=== PATIENT | female | born 1940 | race African-American/Black ===

== ENCOUNTER 2017-09-09 11:38 | Outpatient (CLI) | payer MEDICARE, BC ==
[2017-09-09 12:49] LABS: Anion Gap 12 mmol/L (10-20); BUN (Urea Nitrogen) 9 mg/dL (9.8-20.1); Calc. Creatinine Clearance 0 mL/min (70-130); Calcium 10.2 mg/dL (7.8-10.44); Carbon Dioxide 31 mmol/L (23-31); Chloride 105 mmol/L (98-107); Estimated GFR-MDRD 85
--- NOTE | 2017-09-09 17:15 | RAD ---
ABDOMEN ONE VIEW: History: Stones. Follow up. Comparison: 06-06-17 FINDINGS: Large amount of gas and stool are apparent throughout the colon, predominately obscuring the renal ou tlines. Metallic clips overlie the gallbladder fossa. Right ureteral stent is no longer visible. Calc ifications projecting over the left renal pelvis are similar in appearance and position to the previo us exam. IMPRESSION: 1. Interval removal of the right ureteral stent. 2. Left renal calculi appear stable. 3. Constipation. 4. Status post cholecystectomy. POS: [facility]
== END 2017-09-09 11:39 | disposition home or self-care (01) ==
LOC: RAD 11:38
PROVIDERS: ATTEND Urology
DX: N20.0 Calculus of kidney (principal); Q63.8 Other specified congenital malformations of kidney; Z46.6 Encounter for fitting and adjustment of urinary device; K59.00 Constipation, unspecified; Z90.49 Acquired absence of other specified parts of digestive tract
CPT/HCPCS: 36415; 74000; 80048

== ENCOUNTER 2018-01-15 15:10 | Outpatient (CLI) | payer MEDICARE, BC ==
--- NOTE | 2018-01-16 00:02 | HP ---
DATE OF SERVICE: 01/15/2018 HISTORY OF PRESENT ILLNESS: Ms. Teri Harris is a very pleasant 77-year-old who presents to the [facility] for evaluation of right and left lower extremity edema. The patient was referred to the Wound Center by Dr. Schuler on 2017. The patient states that she has had edema of her right and left lower extremities for approximately 4 years. The patient states that she has been previously prescribed compression stockings. PAST MEDICAL HISTORY: 1. Multiple sclerosis. 2. History of hypertension. 3. Nephrolithiasis 4. Osteoarthritis 5. Chronic lower back pain. PAST SURGICAL HISTORY: 1. Hysterectomy. 2. Appendectomy. 3. Cholecystectomy. MEDICATIONS: 1. Baclofen. 2. Carbamazepine. 3. Potassium chloride. 4. Lasix. 5. Avonex. 6. Advil. 7. Centrum Silver. ALLERGIES: No known diagnosed allergies. SOCIAL HISTORY: Negative for tobacco or ETOH use. FAMILY HISTORY: Negative for diabetes mellitus or coronary artery disease. PHYSICAL EXAMINATION: VITAL SIGNS: Temperature 97.9, pulse 70, respirations 20, blood pressure 177/ 81. GENERAL: A 77-year-old female, sitting on chair in examination room, in no acute distress. HEENT: Normocephalic, atraumatic. NECK: No nuchal rigidity. CHEST: Clear to auscultation. CARDIOVASCULAR: Regular rate and rhythm. ABDOMEN: Soft. EXTREMITIES: No open wounds are present over the right or left lower leg. No cellulitis of the right or left lower leg is present. No maceration of the skin of the right or left lower leg is present. Edema of the right and left lower legs is present on exam today. Circumferences of the right lower extremity at the ankle, calf, and knee are: 43 cm, 53 cm, and 70 cm. Circumferences of the left lower extremity at the ankle, calf, and knee are: 44 cm, 55 cm, and 70 cm. ASSESSMENT AND PLAN: 1. Lymphedema tarda. Arrangements will be made for the initiation of in-home lymphedema therapy. The patient will also be referred to Occupational Therapy for evaluation for manual lymphatic drainage, compression wraps, fitting with compression garments, instruction in exercises for edema management, and aquatic therapy. The patient is to return to the [facility]ound Center on 01/30/2018 where arrangements will be continued for the initiation of in-home lymphedema therapy. The patient understands and is in agreement with the preceding treatment plan. She declines referral for evaluation for venous ablation at the present time. 2. Multiple sclerosis. 3. History of hypertension. [facility]
== END 2018-01-15 15:11 | disposition home or self-care (01) ==
LOC: WCC 15:10
PROVIDERS: ATTEND Family Medicine
DX: I89.0 Lymphedema, not elsewhere classified (principal); G35 Multiple sclerosis; I10 Essential (primary) hypertension
CPT/HCPCS: 97139; G0463; 99203

== ENCOUNTER 2018-01-30 10:53 | Outpatient (CLI) | payer MEDICARE, BC ==
--- NOTE | 2018-01-30 13:20 | PRG ---
DATE OF SERVICE: 01/30/2018 HISTORY: Ms. Teri Harris is a very pleasant 77-year-old who presents to the [facility]ound Center for evaluat ion of right and left lower extremity. The patient was referred to the Wound Center by Dr. Patricia larios on 12/31/2017. The patient previously stated that she had had edema of her right and left lower ex tremities for approximately 4 years. The patient stated that she had previously been prescribed comp ression stockings. PHYSICAL EXAMINATION: VITAL SIGNS: Temperature 97.6, pulse 65, respirations 18, blood pressure 180/81. EXTREMITIES: No open wounds are present over the right or left lower leg. No cellulitis of the righ t or left lower leg is present. No maceration of the skin of the right or left lower leg is present. Edema of the right and left lower legs is present on exam today. Circumferences of the right lower extremity at the ankle, calf and knee are 40 cm, 50 cm, and 53 cm. Circumferences of the left lower extremity at the ankle, calf and knee are 37 cm, 53 cm and 55 cm. ASSESSMENT AND PLAN: 1. Lymphedema tarda. Arrangements will be continued for the initiation of in-home lymphedema therap y. The patient previously declined referral for evaluation for venous ablation at the present time. 2. Multiple sclerosis. 3. History of hypertension.
== END 2018-01-30 10:54 | disposition home or self-care (01) ==
LOC: WCC 10:53
PROVIDERS: ATTEND Family Medicine
DX: I89.0 Lymphedema, not elsewhere classified (principal); G35 Multiple sclerosis; I10 Essential (primary) hypertension; R60.0 Localized edema
CPT/HCPCS: 97139; G0463; 99212

== ENCOUNTER 2018-11-05 23:13 | Inpatient (IN) | payer MEDICARE, BC ==
[2018-11-06 00:28] LABS: #Basophils 0.1 thou/uL (0.0-0.2); #Eosinphils 0.1 thou/uL (0.0-0.7); #Lymphocytes 1.7 thou/uL (1.20-3.40); #Monocytes 0.6 thou/uL (0.11-0.59); #Neutrophils 3.9 thou/uL (1.40-6.50); %Basophils 0.9 % (0.0-1.0); %Eosinophils 1.8 % (0.0-10.0); %Lymphocytes 26.8 % (21.0-51.0); %Neutrophils 61.5 % (42.0-75.0); Hemoglobin 15.2 g/dL (12.0-16.0); Mean Corpuscular HGB CONC 32.8 g/dL (32.0-36.0); Mean Corpuscular Hemoglobin 30.1 pg (27.0-31.0); Mean Platelet Volume 7.3 fL (7.4-10.4); Platelet Count 236 thou/uL (130-400); RBC Distribution Width 11.6 % (11.5-14.5); Red Blood Cell (RBC) Count 5.03 mill/uL (4.20-5.40); White Blood Cell (WBC) Count 6.3 thou/uL (4.8-10.8)
[2018-11-06 00:35] LABS: ALT (SGPT) 22 U/L (8-55); AST (SGOT) 30 U/L (5-34); Albumin 4.3 g/dL (3.4-4.8); Alkaline Phosphatase 94 U/L (40-150); Anion Gap 12 mmol/L (10-20); BUN (Urea Nitrogen) 14 mg/dL (9.8-20.1); Bilirubin, Total 0.5 mg/dL (0.2-1.2); CK (CPK) 305 U/L (29-168); Calc. Creatinine Clearance 0 mL/min (70-130); Calcium 9.9 mg/dL (7.8-10.44); Carbon Dioxide 24 mmol/L (23-31); Chloride 92 mmol/L (98-107); Estimated GFR-MDRD 69; Globulin 3.9 g/dL (2.4-3.5); Glucose 122 mg/dL (83-110); Protein, Total 8.2 g/dL (6.0-8.3); Sodium 125 mmol/L (136-145)
[2018-11-06 01:05] LABS: Bilirubin Negative (Negative); Blood, Urine Small (Negative); Clarity CLOUDY (Clear); Glucose, Urine (Dipstick) Negative (Negative); Leukocyte Moderate (Negative); Nitrite Positive (Negative); Protein, Urine (Dipstick) Trace mg/dL (Neg-Trace)
[2018-11-06 01:08] LABS: Bacteria/HPF None Seen HPF (None Seen); Hyaline Casts/LPF 4-6 HYALINE CAST LPF (0-3 Hyaline); Pathc Cast-AUWi Flag 0.29 (0-2.49)
[2018-11-06 01:17] LABS: Yeast-AUWi Flag 42.4 (0-25.0)
[2018-11-06 01:19] LABS: Renal Epithelial None Seen HPF (0-3); Transitional Epithelial NONE SEEN HPF (0-3); Yeast-All Forms None Seen HPF (None Seen)
[2018-11-06] MEDS ORDERED: cefTRIAXone\\ROCEPHIN 1 GM VIAL ONE (02:48)
[2018-11-06] MEDS ORDERED: Magnesium 2 GM/50 ML BAG (IN WATER) ONE (02:48)
[2018-11-06] MEDS ORDERED: Potassium Chloride 20 MEQ TAB ONE (03:02)
[2018-11-06 04:14] LABS: Troponin I 0.026 ng/mL (< 0.028)
--- NOTE | 2018-11-06 07:40 | RAD ---
RADIOGRAPH CHEST 1 VIEW: HISTORY: 77-year-old female with generalized weakness. FINDINGS: The thoracic aorta is tortuous and ectatic. There is no evidence of air space density, pneumothorax, or pulmonary edema. The lateral costophrenic angles are sharp. IMPRESSION: 1. No acute pulmonary findings. 2. Ectasia of thoracic aorta. cecil [] POS: [facility]
[2018-11-06] MEDS ORDERED: Acetaminophen 325 MG TAB PO PRN (10:49)
[2018-11-06] MEDS ORDERED: Nitroglycerin 0.4 MG TAB (25 Tab Bottle) PO PRN (10:49)
[2018-11-06] MEDS ORDERED: Aspirin 325 MG TAB PO SCH (11:00)
[2018-11-06] MEDS ORDERED: NS 0.9% w/ 40 MEQ KCL 1,000 ML IV SCH (11:00)
--- NOTE | 2018-11-06 15:04 | HP ---
PRIMARY CARE PROVIDER: Norman Schuler MD CHIEF COMPLAINT: Weakness. HISTORY OF PRESENT ILLNESS: Ms. Harris is a pleasant 77-year-old lady, who was seen at [facility] on November 06, 2018. She has a history of lymphedema tarda. She reports that her lower extremities are usually swollen. She reports that she has had generalized weakness over the last day or so, with lower extremity weakness as well. She uses a mechanical chair at home. She can take one or two steps with a walker; however, when she tried to stand up yesterday, she found that she was unable to stand because of lower extremity weakness. She denies any chest pain, shortness of breath, fevers, or chills. She denies any nausea or vomiting. REVIEW OF SYSTEMS: All other systems reviewed and found to be negative. PAST MEDICAL HISTORY: Lymphedema tarda, multiple sclerosis, hypertension. PAST SURGICAL HISTORY: Appendectomy, tubal ligation, kidney stone removal, hysterectomy. SOCIAL HISTORY: The patient denies tobacco use, alcohol use, or recreational drug use. FAMILY HISTORY: The patient denies any family history of premature coronary artery disease. CODE STATUS: I discussed her code status. She is full code. Surrogate decision maker is her oldest daughter, Eva Rivera. ALLERGIES: NO KNOWN DRUG ALLERGIES. CURRENT MEDICATIONS: 1. Carbamazepine 200 mg 2 times a day. 2. Potassium chloride 40 mEq daily. 3. Furosemide 40 mg 2 times a day. 4. Baclofen 20 mg 2 times a day. 5. Avonex 30 mcg intramuscularly every week. 6. Amlodipine 10 mg daily. PHYSICAL EXAMINATION: GENERAL: On examination, Ms. Harris is awake and alert, not in acute distress. She is obese. VITAL SIGNS: Blood pressure is 154/96, pulse 82, respiratory rate 16, and oxygen saturation 99% on room air. She is afebrile. EYES: No scleral icterus, no conjunctival pallor. ENT: Dry mucosal membranes. No oropharyngeal erythema or exudates. NECK: Supple, nontender, trachea is midline. RESPIRATORY: Accessory muscles of breathing are not active. Chest wall movements are symmetric bilaterally. Lungs are clear to auscultation without wheeze, rhonchi, or crepitations. CARDIOVASCULAR: S1 and S2 are heard, regular. Peripheral pulses palpable. No carotid bruit. No pericardial rub. ABDOMEN: Soft, nontender, bowel sounds are heard. NEUROLOGIC: Cranial nerves 2 through 12 intact, deep tendon reflexes 2+. MUSCULOSKELETAL: Bilateral lower extremity lymphedema. Power is 5/5 in all four extremities. SKIN: Bilateral lower extremity lymphedema. LYMPHATIC: No cervical lymphadenopathy. PSYCHIATRIC: Normal mood, normal affect, the patient is oriented to person, place, and time. LABORATORY DATA AND DIAGNOSTIC DATA: Ms. Harris's labs and investigations were reviewed. I reviewed her electrocardiogram, which shows normal sinus rhythm, no ST changes to suggest an acute coronary syndrome. I also reviewed her chest x-ray, which does not show any pulmonary infiltrates. There is no pulmonary edema. She has an unremarkable CBC, decreased sodium of 125, decreased potassium of 3.0, normal creatinine, elevated CK of 305, unremarkable liver profile and elevated troponin I of 0.030. BNP is normal at 18.7. Magnesium is normal. Urinalysis is positive for nitrite and leukocyte esterase. ASSESSMENT AND PLAN: Ms. Harris is a pleasant 77-year-old lady, who was seen at [facility] on November 06, 2018. Her problem list includes: 1. Weakness: Ms. Harris is presenting with generalized weakness, worse in the lower extremities. Etiology is not clear at this time. She appears to have a urinary tract infection. She also has troponins which are in the indeterminate range. At this time, she denies any chest pain. She will be admitted to the hospital for further management. 2. Urinary tract infection: She has been started on ceftriaxone, which I will continue. We will await urine cultures. 3. Elevated troponin: We will check stress test to rule out cardiac etiology. 4. Hyponatremia: The patient is clinically dehydrated. We will provide intravenous hydration and recheck. 5. Hypokalemia: Replace potassium. 6. Hypertension: We will monitor vital signs and titrate antihypertensives as needed. Many thanks for allowing me to participate in your patient's care. Please feel free to contact me with any questions or concerns. LEVEL OF RISK: High. LEVEL OF COMPLEXITY: High. Job ID: [id number]
[2018-11-06 17:13] VITALS: BMI 44.4
[2018-11-06] MEDS ORDERED: Losartan 25 MG TAB PO SCH (19:00)
[2018-11-06] MEDS ORDERED: Furosemide 40 MG TAB PO SCH (19:00)
[2018-11-06] MEDS: Baclofen 10 MG TAB PO SCH (20:47)
[2018-11-06] MEDS: hydrALAZINE 20 MG/ML VIAL SLOW IVP PRN (20:48)
[2018-11-06] MEDS: Potassium Chloride 20 MEQ TAB PO SCH (20:48)
[2018-11-07] MEDS: Potassium Chloride 20 MEQ TAB PO SCH ×2 (00:12→12:57)
[2018-11-07 05:43] LABS: Anion Gap 16 mmol/L (10-20); BUN (Urea Nitrogen) 8 mg/dL (9.8-20.1); Calc. Creatinine Clearance 124 mL/min (70-130); Calcium 9.5 mg/dL (7.8-10.44); Carbon Dioxide 22 mmol/L (23-31); Chloride 107 mmol/L (98-107); Estimated GFR-MDRD 90; Glucose 105 mg/dL (83-110); Potassium 3.8 mmol/L (3.5-5.1); Sodium 141 mmol/L (136-145)
[2018-11-07] MEDS: cefTRIAXone\\ROCEPHIN 1 GM in Sodium Chloride 0.9% 100 ML IVPB SCH (05:50)
[2018-11-07 05:54] LABS: Band 2 % (5-11); Hemoglobin 14.4 g/dL (12.0-16.0); Lymphocytes 38 % (21-51); MDiff Complete? YES; Mean Corpuscular HGB CONC 32.9 g/dL (32.0-36.0); Mean Corpuscular Hemoglobin 30.4 pg (27.0-31.0); Mean Corpuscular Volume 92.5 fL (78.0-98.0); Monocytes 2 % (0-10); Neutrophil 58 % (42-75); Platelet Count 200 thou/uL (130-400); Platelet Morphology Comment Appears Adequate; RBC Distribution Width 11.7 % (11.5-14.5); RBC Morphology Normal; Red Blood Cell (RBC) Count 4.74 mill/uL (4.20-5.40); White Blood Cell (WBC) Count 6.3 thou/uL (4.8-10.8)
[2018-11-07] MEDS: Baclofen 10 MG TAB PO SCH ×2 (10:42→20:22)
[2018-11-07] MEDS: Enoxaparin Sodium 40 MG/0.4 ML SYRINGE SC SCH (12:56)
[2018-11-07] MEDS: Furosemide 40 MG TAB PO SCH (12:57)
[2018-11-07] MEDS: Aspirin 325 MG TAB PO SCH (12:57)
--- NOTE | 2018-11-07 13:59 | PDOC.PN ---
- Subjective Encounter Start Date: 11/07/18 Encounter Start Time: 08:00 Pt seen for followup re: UTI. Feels better. No chest pain. - Objective Resuscitation Status - Order Detail: 11/06/18 10:49 Resuscitation Status Routine Resuscitation Status: FULL: Full Resuscitation Discussed with: patient MANISH Reviewed: Yes Vital Signs & Weight: Vital Signs (12 hours) Temp Pulse Resp BP BP Pulse Ox 11/07/18 12:53 98.3 F 94 16 136/66 97 11/07/18 07:28 98.5 F 83 16 142/76 H 142/76 H 96 11/07/18 04:00 98.8 F 81 19 161/70 H 98 Weight Weight 269 lb 4.8 oz I&O: 11/06/18 11/07/18 11/08/18 06:59 06:59 06:59 Intake Total 240 Output Total 1200 Balance -960 Result Diagrams: 11/07/18 04:53 11/07/18 04:53 EKG Reviewed by me: Yes (Tele: NSR) Phys Exam - Physical Examination Morbid obesity HEENT: moist MMs, sclera anicteric, oral pharynx no lesions, 2+ tonsils Neck: no nodes, no JVD, supple, full ROM Respiratory: clear to auscultation bilateral Cardiovascular: RRR, no rub S1, S2 Gastrointestinal: soft, non-tender, no distention, positive bowel sounds Neurological: moves all 4 limbs Psychiatric: normal affect, A&O x 3 Dx/Plan (1) UTI (urinary tract infection) Status: Acute Comment: continue ceftriaxone, follow culture (2) Weakness Code(s): R53.1 - WEAKNESS Status: Acute Comment: PT eval if stress test negative (3) Elevated troponin Code(s): R74.8 - ABNORMAL LEVELS OF OTHER SERUM ENZYMES Status: Acute Comment: await stress test result (4) HTN (hypertension) Code(s): I10 - ESSENTIAL (PRIMARY) HYPERTENSION Status: Chronic Comment: controlled (5) Hyponatremia Code(s): E87.1 - HYPO-OSMOLALITY AND HYPONATREMIA Status: Resolved - Plan * . Review of Systems - Review of Systems Constitutional: weakness. negative: fever, chills, sweats, malaise Respiratory: negative: Cough, Shortness of Breath, SOB with Excertion, Pleuritic Pain, Wheezing Cardiovascular: negative: chest pain, palpitations, orthopnea, paroxysmal nocturnal dyspnea, edema, light headedness Gastrointestinal: negative: Nausea, Vomiting, Abdominal Pain, Diarrhea, Constipation, Melena, Hematochezia Genitourinary: negative: Dysuria, Frequency, Incontinence, Hematuria, Retention Skin: negative: Rash, Lesions, Ramiro, Bruising - Medications/Allergies Allergies/Adverse Reactions: Allergies Allergy/AdvReac Type Severity Reaction Status Date / Time No Known Drug Allergies Allergy Verified 05/27/17 13:53 Medications: Current Medications Acetaminophen (Tylenol) 650 mg PO Q4H PRN PRN Reason: Headache/Fever/Mild Pain (1-3) Aspirin (Aspirin) 325 mg PO DAILY [facility] Last Admin: 11/07/18 12:57 Dose: 325 mg Baclofen (Lioresal) 20 mg PO BID [facility] Last Admin: 11/07/18 10:42 Dose: Not Given Carbamazepine (Tegretol Xr) 200 mg PO BID [facility] Last Admin: 11/07/18 10:43 Dose: Not Given Enoxaparin Sodium (Lovenox) 40 mg SC 0900 [facility] Last Admin: 11/07/18 12:56 Dose: 40 mg Furosemide (Lasix) 40 mg PO QAM [facility] Last Admin: 11/07/18 12:57 Dose: 40 mg Hydralazine HCl (Apresoline) 10 mg SLOW IVP Q6H PRN PRN Reason: SBP Greater Than 170 Last Admin: 11/06/18 20:48 Dose: 10 mg Ceftriaxone Sodium 1 gm/ (Sodium Chloride) 100 mls @ 200 mls/hr IVPB 0400 [facility] Last Admin: 11/07/18 05:50 Dose: 100 mls Nitroglycerin (Nitrostat) 0.4 mg PO Q5MIN PRN PRN Reason: Chest Pain Potassium Chloride (K-Dur) 20 meq PO QAM [facility] Last Admin: 11/07/18 12:57 Dose: 20 meq Sodium Chloride (Flush - Normal Saline) 10 ml IVF Q12HR [facility] Last Admin: 11/07/18 12:56 Dose: 10 ml Sodium Chloride (Flush - Normal Saline) 10 ml IVF PRN PRN PRN Reason: Saline Flush
--- NOTE | 2018-11-07 14:50 | NM ---
MYOCARDIAL PERFUSION STRESS ONLY EXAM: HISTORY: Chest pain. Examination was performed using 28 mCi 99m Technetium sestamibi on the This shows a fairly normal dis tribution of the radiopharmaceutical. No signs of any ischemia change. WALL MOTION: There is symmetric contractility to the ventricle. LEFT VENTRICULAR EJECTION FRACTION: The calculated left ventricular ejection fraction was 78%. IMPRESSION: Unremarkable stress myocardial perfusion scan. POS: [facility]
[2018-11-08] MEDS: cefTRIAXone\\ROCEPHIN 1 GM in Sodium Chloride 0.9% 100 ML IVPB SCH (04:11)
[2018-11-08] MEDS: Furosemide 40 MG TAB PO SCH (08:17)
[2018-11-08] MEDS: Baclofen 10 MG TAB PO SCH ×2 (08:17→21:25)
[2018-11-08] MEDS: Enoxaparin Sodium 40 MG/0.4 ML SYRINGE SC SCH (08:17)
[2018-11-08] MEDS: Potassium Chloride 20 MEQ TAB PO SCH (08:17)
[2018-11-08] MEDS: Aspirin 325 MG TAB PO SCH (08:17)
--- NOTE | 2018-11-08 15:07 | PDOC.PN ---
- Subjective Encounter Start Date: 11/08/18 Encounter Start Time: 14:30 Subjective: patient examined today, reports bilateral knee pain -: Reports right is worse than left -: Reports having a MS flare, Dr. Milton usually manages Otherwise, no complaints today, Denies chest pain, nausea, SOB). - Objective Resuscitation Status - Order Detail: 11/06/18 10:49 Resuscitation Status Routine Resuscitation Status: FULL: Full Resuscitation Discussed with: patient Vital Signs & Weight: Vital Signs (12 hours) Temp Pulse Resp BP Pulse Ox 11/08/18 11:29 98.2 F 91 16 163/76 H 97 11/08/18 08:12 98.4 F 89 16 162/81 H 98 11/08/18 03:38 98.3 F 83 14 174/81 H 96 Weight Weight 122.101 kg I&O: 11/07/18 11/08/18 11/09/18 06:59 06:59 06:59 Intake Total 240 760 Output Total 1200 600 Balance -960 160 Result Diagrams: 11/07/18 04:53 11/07/18 04:53 Phys Exam - Physical Examination Constitutional: NAD HEENT: PERRLA, moist MMs Neck: no nodes, no JVD Respiratory: no wheezing, clear to auscultation bilateral Cardiovascular: RRR, no significant murmur Gastrointestinal: soft, non-tender Musculoskeletal: pulses present, edema present +1 edema bilaterally, bilateral knee pain Neurological: non-focal, moves all 4 limbs Lymphatic: no nodes Psychiatric: normal affect, A&O x 3 Skin: no rash, normal turgor Dx/Plan (1) Elevated troponin Code(s): R74.8 - ABNORMAL LEVELS OF OTHER SERUM ENZYMES Status: Acute Comment: await stress test result (2) UTI (urinary tract infection) Status: Acute Comment: continue ceftriaxone, follow culture (3) Weakness Code(s): R53.1 - WEAKNESS Status: Acute Comment: PT eval if stress test negative (4) HTN (hypertension) Code(s): I10 - ESSENTIAL (PRIMARY) HYPERTENSION Status: Chronic Comment: controlled (5) Edema of both legs Code(s): R60.0 - LOCALIZED EDEMA Status: Acute (6) Hip pain, acute Code(s): M25.559 - PAIN IN UNSPECIFIED HIP Status: Chronic (7) Knee pain, bilateral Code(s): M25.561 - PAIN IN RIGHT KNEE; M25.562 - PAIN IN LEFT KNEE Status: Chronic Qualifiers: Chronicity: chronic Qualified Code(s): M25.561 - Pain in right knee Comment: likely due to osteoarthritis vs acute gout pain (8) Multiple sclerosis Code(s): G35 - MULTIPLE SCLEROSIS Status: Chronic Comment: need to rule out exacerbation (9) Physical deconditioning Code(s): R53.81 - OTHER MALAISE Status: Chronic - Plan cont current plan of care CM talked to pt and family today about possible SNF placement -: Consult Dr. Milton re: MS flare -: Switch patient over to PO ABX * .
--- NOTE | 2018-11-08 20:32 | PDOC.EVN ---
Event Note - Event Note Event Note: Chart reviewed. Pt seen Pt says she feels well, no complaints. VSS S1, S2, reg Lungs CTA A/P 1. UTI: continue antibiotics. Discussed plan of care with Louisa.
--- NOTE | 2018-11-08 23:46 | EKG ---
Test Reason : Blood Pressure : / mmHG Vent. Rate : 089 BPM Atrial Rate : 089 BPM P-R Int : 156 ms QRS Dur : 080 ms QT Int : 374 ms P-R-T Axes : 044 -04 005 degrees QTc Int : 455 ms Normal sinus rhythm Minimal voltage criteria for LVH, may be normal variant Inferior infarct , age undetermined Cannot rule out Anterior infarct , age undetermined Abnormal ECG Confirmed by JOSHUA LOFTON DO ([id number]), scientific publications editor KIMBERLY MORELAND ([id number]) on 11/08/2018 11:45:42 PM Referred By: Confirmed By:JOSHUA LOFTON DO
[2018-11-09] MEDS: Enoxaparin Sodium 40 MG/0.4 ML SYRINGE SC SCH (08:49)
[2018-11-09] MEDS: Aspirin 325 MG TAB PO SCH (08:49)
[2018-11-09] MEDS: Baclofen 10 MG TAB PO SCH ×2 (08:49→21:35)
[2018-11-09] MEDS: Furosemide 40 MG TAB PO SCH (08:49)
[2018-11-09] MEDS: Potassium Chloride 20 MEQ TAB PO SCH (08:50)
[2018-11-09] MEDS: Cefdinir 300 MG CAP PO SCH ×2 (08:50→21:35)
[2018-11-09] MEDS ORDERED: methylPREDNISolone Sod Succ 1 GM in Sodium Chloride 0.9% 100 ML IVPB SCH (12:00)
[2018-11-09] MEDS: methylPREDNISolone Sod Succ 1 GM in Sodium Chloride 0.9% 250 ML 250 ML IVPB SCH (12:25)
--- NOTE | 2018-11-09 20:35 | PDOC.PN ---
- Subjective Encounter Start Date: 11/09/18 Encounter Start Time: 20:25 Subjective: f/u for severe weakness of bilat LE's and suspected MS flare. Received -: Solumedrol IV with plans for 3 doses. Feels ok otherwise. - Objective Resuscitation Status - Order Detail: 11/06/18 10:49 Resuscitation Status Routine Resuscitation Status: FULL: Full Resuscitation Discussed with: patient MANISH Reviewed: Yes Vital Signs & Weight: Vital Signs (12 hours) Temp Pulse Resp BP Pulse Ox 11/09/18 19:30 97.8 F 88 14 173/87 H 94 L 11/09/18 15:02 98.6 F 81 16 168/88 H 95 11/09/18 12:22 88 16 159/75 H 99 Weight Weight 265 lb 8 oz I&O: 11/08/18 11/09/18 11/10/18 06:59 06:59 06:59 Intake Total 760 1720 1520 Output Total 600 3350 1875 Balance 160 -1630 -355 Result Diagrams: 11/07/18 04:53 11/07/18 04:53 Additional Labs: Microbiology 11/08/18 11:05 Urine clean catch Urine Culture - Preliminary Non-Hemolytic Streptococcus Laboratory Tests 11/06/18 11/06/18 00:16 00:16 Magnesium 2.4 B-Natriuretic Peptide 18.7 Radiology Reviewed by me: Yes ([employer] - neg for ischemia, EF 78%) EKG Reviewed by me: Yes (Tele - SR) Phys Exam - Physical Examination Constitutional: NAD HEENT: PERRLA, sclera anicteric, oral pharynx no lesions Neck: no nodes, no JVD, supple, full ROM Respiratory: no wheezing, no rales, no rhonchi, clear to auscultation bilateral S1, S2 Cardiovascular: RRR, no significant murmur, no rub, gallop Gastrointestinal: soft, non-tender, no distention, positive bowel sounds mild peripheral edema Musculoskeletal: pulses present moves UE's, LE's minimal movement laterally Neurological: normal sensation Psychiatric: A&O x 3 Skin: normal turgor, cap refill <2 seconds Dx/Plan (1) Multiple sclerosis exacerbation Code(s): G35 - MULTIPLE SCLEROSIS Status: Acute Comment: Suspected, continue Solumedrol 1gm IV x 3 doses (2) UTI (urinary tract infection) Status: Acute Comment: Continue Omnicef (3) Weakness Code(s): R53.1 - WEAKNESS Status: Acute Comment: PT for mobilization/ ambulation, SNF options (4) HTN (hypertension) Code(s): I10 - ESSENTIAL (PRIMARY) HYPERTENSION Status: Chronic Qualifiers: Hypertension type: essential hypertension Qualified Code(s): I10 - Essential (primary) hypertension Comment: continue Lasix, monitor clinical response, titrate for optimization - Plan plan discussed w/ family, continue antibiotics, 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
[2018-11-10] MEDS: Enoxaparin Sodium 40 MG/0.4 ML SYRINGE SC SCH (10:04)
[2018-11-10] MEDS: Aspirin Chewable 81 MG TAB PO SCH (10:04)
[2018-11-10] MEDS: Cefdinir 300 MG CAP PO SCH ×2 (10:05→22:04)
[2018-11-10] MEDS: Potassium Chloride 20 MEQ TAB PO SCH (10:05)
[2018-11-10] MEDS: Baclofen 10 MG TAB PO SCH ×2 (10:05→22:05)
[2018-11-10] MEDS: Furosemide 40 MG TAB PO SCH (10:05)
[2018-11-10] MEDS: methylPREDNISolone Sod Succ 1 GM in Sodium Chloride 0.9% 250 ML 250 ML IVPB SCH (12:08)
--- NOTE | 2018-11-10 16:07 | PDOC.PN ---
- Subjective Encounter Start Date: 11/10/18 Encounter Start Time: 16:00 Subjective: f/u for LE weakness suspected with MS flare on Solumedrol IV x 3d. -: Feels better, stood at bedside and more ROM of LE's. - Objective Resuscitation Status - Order Detail: 11/06/18 10:49 Resuscitation Status Routine Resuscitation Status: FULL: Full Resuscitation Discussed with: patient MANISH Reviewed: Yes Vital Signs & Weight: Vital Signs (12 hours) Temp Pulse Pulse Pulse Resp BP BP 11/10/18 13:30 92 147/78 H 11/10/18 12:32 98.4 F 89 18 11/10/18 09:44 99 166/80 H 11/10/18 08:10 98.5 F 97 18 BP Pulse Ox 11/10/18 13:30 11/10/18 12:32 159/68 H 96 11/10/18 09:44 11/10/18 08:10 122/60 95 Weight Weight 269 lb 11.2 oz I&O: 11/09/18 11/10/18 11/11/18 06:59 06:59 06:59 Intake Total 1720 1820 Output Total 3350 2975 Balance -1630 -1155 Result Diagrams: 11/07/18 04:53 11/07/18 04:53 Additional Labs: Microbiology 11/08/18 11:05 Urine clean catch Urine Culture - Preliminary Non-Hemolytic Streptococcus Laboratory Tests 11/06/18 11/06/18 00:16 00:16 Magnesium 2.4 B-Natriuretic Peptide 18.7 EKG Reviewed by me: Yes (Tele - SR) Phys Exam - Physical Examination Constitutional: NAD HEENT: PERRLA, sclera anicteric, oral pharynx no lesions Neck: no nodes, no JVD, supple, full ROM Respiratory: no wheezing, no rales, no rhonchi, clear to auscultation bilateral S1, S2 Cardiovascular: RRR, no significant murmur, no rub, gallop Gastrointestinal: soft, non-tender, no distention, positive bowel sounds Musculoskeletal: pulses present, edema present Neurological: normal sensation, moves all 4 limbs Psychiatric: A&O x 3 Skin: normal turgor, cap refill <2 seconds Dx/Plan (1) Multiple sclerosis exacerbation Code(s): G35 - MULTIPLE SCLEROSIS Status: Acute Comment: Suspected, continue Solumedrol 1gm IV x 3 doses (2) UTI (urinary tract infection) Status: Acute Comment: Continue Omnicef (3) Weakness Code(s): R53.1 - WEAKNESS Status: Acute Comment: PT for mobilization/ ambulation, likely home in 24h with HH/PT (4) HTN (hypertension) Code(s): I10 - ESSENTIAL (PRIMARY) HYPERTENSION Status: Chronic Qualifiers: Hypertension type: essential hypertension Qualified Code(s): I10 - Essential (primary) hypertension Comment: continue Lasix, monitor clinical response, titrate for optimization - Plan plan discussed w/ family, 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
[2018-11-11] MEDS: Baclofen 10 MG TAB PO SCH ×2 (08:39→20:37)
[2018-11-11] MEDS: Enoxaparin Sodium 40 MG/0.4 ML SYRINGE SC SCH (08:40)
[2018-11-11] MEDS: Potassium Chloride 20 MEQ TAB PO SCH (08:40)
[2018-11-11] MEDS: Aspirin Chewable 81 MG TAB PO SCH (08:40)
[2018-11-11] MEDS: Cefdinir 300 MG CAP PO SCH ×2 (08:40→20:37)
[2018-11-11] MEDS: Furosemide 40 MG TAB PO SCH (08:40)
[2018-11-11] MEDS: hydrALAZINE 20 MG/ML VIAL SLOW IVP PRN ×2 (09:27→20:39)
[2018-11-11] MEDS: methylPREDNISolone Sod Succ 1 GM in Sodium Chloride 0.9% 250 ML 250 ML IVPB SCH (11:47)
--- NOTE | 2018-11-11 15:05 | PDOC.PN ---
- Subjective Encounter Start Date: 11/11/18 Encounter Start Time: 15:00 Subjective: f/u for LE weakness and suspected MS flare. Received Solumedrol -: IV x 3 days. Feels much better and moving LE's easier. - Objective Resuscitation Status - Order Detail: 11/06/18 10:49 Resuscitation Status Routine Resuscitation Status: FULL: Full Resuscitation Discussed with: patient MANISH Reviewed: Yes Vital Signs & Weight: Vital Signs (12 hours) Temp Pulse Resp BP BP Pulse Ox 11/11/18 11:32 99.1 F 93 17 141/67 H 95 11/11/18 10:00 92 160/76 H 11/11/18 09:27 71 195/71 H 11/11/18 08:20 99.3 F 72 16 173/79 H 100 11/11/18 03:37 98.0 F 91 14 142/67 H 97 Weight Weight 271 lb I&O: 11/10/18 11/11/18 11/12/18 06:59 06:59 06:59 Intake Total 1820 2050 Output Total 2975 2775 Balance -1155 -725 Result Diagrams: 11/07/18 04:53 11/07/18 04:53 Additional Labs: Microbiology 11/08/18 11:05 Urine clean catch Urine Culture - Preliminary Non-Hemolytic Streptococcus Laboratory Tests 11/06/18 11/06/18 00:16 00:16 Magnesium 2.4 B-Natriuretic Peptide 18.7 EKG Reviewed by me: Yes (Tele - SR) Phys Exam - Physical Examination Constitutional: NAD HEENT: PERRLA, sclera anicteric, oral pharynx no lesions Neck: no nodes, no JVD, supple, full ROM Respiratory: no wheezing, no rales, no rhonchi, clear to auscultation bilateral S1, S2 Cardiovascular: RRR, no significant murmur, no rub, gallop Gastrointestinal: soft, non-tender, no distention, positive bowel sounds mild peripheral LE edema Musculoskeletal: pulses present Neurological: normal sensation, moves all 4 limbs Psychiatric: A&O x 3 Skin: normal turgor, cap refill <2 seconds Dx/Plan (1) Multiple sclerosis exacerbation Code(s): G35 - MULTIPLE SCLEROSIS Status: Acute Comment: Suspected, completed Solumedrol x 3 doses, stable (2) UTI (urinary tract infection) Status: Acute Comment: Continue Omnicef (3) Weakness Code(s): R53.1 - WEAKNESS Status: Acute Comment: PT for mobilization/ ambulation, plan for Rehab transfer (4) HTN (hypertension) Code(s): I10 - ESSENTIAL (PRIMARY) HYPERTENSION Status: Chronic Qualifiers: Hypertension type: essential hypertension Qualified Code(s): I10 - Essential (primary) hypertension Comment: continue Lasix, monitor clinical response, titrate for optimization - Plan plan discussed w/ family, continue antibiotics, PT/OT, director social welfare, out of bed/ambulate Stable currently -: PT for mobilization -: Continue Lasix 40mg daily -: Continue Omnicef -: Likely d/c to inpt rehab * .
[2018-11-12] MEDS: Enoxaparin Sodium 40 MG/0.4 ML SYRINGE SC SCH (08:44)
[2018-11-12] MEDS: Potassium Chloride 20 MEQ TAB PO SCH (08:44)
[2018-11-12] MEDS: Aspirin Chewable 81 MG TAB PO SCH (08:44)
[2018-11-12] MEDS: Furosemide 40 MG TAB PO SCH (08:45)
[2018-11-12] MEDS: Baclofen 10 MG TAB PO SCH ×2 (08:45→20:35)
[2018-11-12] MEDS: Cefdinir 300 MG CAP PO SCH ×2 (08:45→20:35)
--- NOTE | 2018-11-12 20:03 | PDOC.PN ---
- Subjective Encounter Start Date: 11/12/18 Encounter Start Time: 19:25 Subjective: f/u for LE weakness and suspected MS flare s/p high-dose Solumedrol -: x 3 days. Feels ok overall. c/o needing to have a BM. - Objective Resuscitation Status - Order Detail: 11/06/18 10:49 Resuscitation Status Routine Resuscitation Status: FULL: Full Resuscitation Discussed with: patient MAR Reviewed: Yes Vital Signs & Weight: Vital Signs (12 hours) Temp Pulse Resp BP Pulse Ox 11/12/18 15:39 80 16 173/90 H 94 L 11/12/18 11:45 98.9 F 89 14 135/65 97 Weight Weight 273 lb I&O: 11/11/18 11/12/18 11/13/18 06:59 06:59 06:59 Intake Total 2049 1740 1250 Output Total 2775 2049 1800 Balance -725 -310 -550 Result Diagrams: 11/07/18 04:53 11/07/18 04:53 EKG Reviewed by me: Yes (Tele - SR) Phys Exam - Physical Examination Constitutional: NAD HEENT: PERRLA, sclera anicteric, oral pharynx no lesions Neck: no nodes, no JVD, supple, full ROM Respiratory: no wheezing, no rales, no rhonchi, clear to auscultation bilateral S1, S2 Cardiovascular: RRR, no significant murmur, no rub, gallop Gastrointestinal: soft, non-tender, no distention, positive bowel sounds Musculoskeletal: pulses present, edema present Neurological: normal sensation, moves all 4 limbs Skin: normal turgor, cap refill <2 seconds Dx/Plan (1) Multiple sclerosis exacerbation Code(s): G35 - MULTIPLE SCLEROSIS Status: Acute Comment: Suspected, completed Solumedrol x 3 doses, stable (2) UTI (urinary tract infection) Status: Acute Comment: Continue Omnicef another 24h then d/c (3) Weakness Code(s): R53.1 - WEAKNESS Status: Acute Comment: PT for mobilization/ ambulation, plan for Rehab transfer (4) HTN (hypertension) Code(s): I10 - ESSENTIAL (PRIMARY) HYPERTENSION Status: Chronic Qualifiers: Hypertension type: essential hypertension Qualified Code(s): I10 - Essential (primary) hypertension Comment: continue Lasix, monitor clinical response, titrate for optimization - Plan continue antibiotics, PT/OT, clinical social work therapist Stable overall -: Sennokot-S BID -: PT for mobilization -: Await Rehab transfer -: Continue Tegretol/Baclofen * .
[2018-11-12] MEDS: Senokot S 8.6-50 MG TAB PO SCH (20:35)
[2018-11-13] MEDS: Aspirin Chewable 81 MG TAB PO SCH (08:16)
[2018-11-13] MEDS: Senokot S 8.6-50 MG TAB PO SCH ×2 (08:16→21:11)
[2018-11-13] MEDS: Baclofen 10 MG TAB PO SCH ×2 (08:16→21:10)
[2018-11-13] MEDS: Cefdinir 300 MG CAP PO SCH ×2 (08:17→21:11)
[2018-11-13] MEDS: Furosemide 40 MG TAB PO SCH (08:17)
[2018-11-13] MEDS: Potassium Chloride 20 MEQ TAB PO SCH (08:17)
[2018-11-13] MEDS: Enoxaparin Sodium 40 MG/0.4 ML SYRINGE SC SCH (08:17)
--- NOTE | 2018-11-13 19:10 | PDOC.PN ---
- Subjective Encounter Start Date: 11/13/18 Encounter Start Time: 19:00 Subjective: f/u for LE weakness and suspected MS flare completing Solumedrol -: x 3 days. Overall feels ok and awaiting inpt rehab transfer. -: Stood by bed with PT assistance today. - Objective Resuscitation Status - Order Detail: 11/06/18 10:49 Resuscitation Status Routine Resuscitation Status: FULL: Full Resuscitation Discussed with: patient MAR Reviewed: Yes Vital Signs & Weight: Vital Signs (12 hours) Temp Pulse Pulse Pulse Resp BP BP 11/13/18 17:15 99.6 F 91 16 11/13/18 12:30 97.5 F L 94 16 11/13/18 09:12 101 H 88 137/65 144/67 H 11/13/18 08:13 98.1 F 90 16 BP Pulse Ox Pulse Ox Pulse Ox 11/13/18 17:15 126/75 94 L 11/13/18 12:30 145/81 H 97 11/13/18 09:12 97 96 11/13/18 08:13 112/67 95 Weight Weight 269 lb 3.2 oz I&O: 11/12/18 11/13/18 11/14/18 06:59 06:59 06:59 Intake Total 1740 1490 Output Total 2050 2600 Balance -310 -1110 Result Diagrams: 11/07/18 04:53 11/07/18 04:53 EKG Reviewed by me: Yes (Tele - SR) Phys Exam - Physical Examination Constitutional: NAD HEENT: PERRLA, sclera anicteric, oral pharynx no lesions Neck: no nodes, no JVD, supple, full ROM Respiratory: no wheezing, no rales, no rhonchi, clear to auscultation bilateral S1, S2 Cardiovascular: RRR, no significant murmur, no rub, gallop Gastrointestinal: soft, non-tender, no distention, positive bowel sounds mild peripheral edema Musculoskeletal: pulses present Neurological: normal sensation, moves all 4 limbs Psychiatric: A&O x 3 Skin: normal turgor, cap refill <2 seconds Dx/Plan (1) Multiple sclerosis exacerbation Code(s): G35 - MULTIPLE SCLEROSIS Status: Acute Comment: Suspected, completed Solumedrol x 3 doses completed, stable (2) UTI (urinary tract infection) Status: Acute Comment: Continue Omnicef another 24h then d/c (3) Weakness Code(s): R53.1 - WEAKNESS Status: Acute Comment: PT for mobilization/ ambulation, plan for Rehab transfer (4) HTN (hypertension) Code(s): I10 - ESSENTIAL (PRIMARY) HYPERTENSION Status: Chronic Qualifiers: Hypertension type: essential hypertension Qualified Code(s): I10 - Essential (primary) hypertension Comment: continue Lasix, monitor clinical response, titrate for optimization - Plan continue antibiotics, PT/OT, 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
[2018-11-14] MEDS: Aspirin Chewable 81 MG TAB PO SCH (08:01)
[2018-11-14] MEDS: Baclofen 10 MG TAB PO SCH (08:13)
[2018-11-14] MEDS: Cefdinir 300 MG CAP PO SCH (08:13)
[2018-11-14] MEDS: Enoxaparin Sodium 40 MG/0.4 ML SYRINGE SC SCH (08:14)
[2018-11-14] MEDS: Senokot S 8.6-50 MG TAB PO SCH (08:14)
[2018-11-14] MEDS: Potassium Chloride 20 MEQ TAB PO SCH (08:14)
[2018-11-14] MEDS: Furosemide 40 MG TAB PO SCH (08:14)
[2018-11-14 12:06] VITALS: TEMP 98.3
--- NOTE | 2018-11-14 12:19 | DIS ---
DATE OF ADMISSION: 11/07/2018 DATE OF DISCHARGE: 11/14/2018 PRIMARY CARE PHYSICIAN: Norman Schuler MD DISCHARGE DIAGNOSES: 1. Multiple sclerosis exacerbation, mild improvement. 2. Urinary tract infection with Enterococcus species, resolved. 3. Generalized weakness, multifactorial. 4. Deconditioning. 5. Hypertension, stable. 6. Lymphedema tarda, chronic. CONSULTATIONS: Renzo Milton MD with Neurology Service. PERTINENT LAB AND X-RAY FINDINGS: Basic metabolic profile within normal limits. Magnesium level 2.4. Total CK 305, troponin I ranged between 0.026 to 0.030, and BNP 18.7. CBC within normal limits. Urine culture dated 11/08/2018 showed 10,000 to 25,000 colonies of Enterococcus faecalis. Portable chest x-ray dated 11/05/2018, showed no acute cardiopulmonary process. Cardiolite stress test dated 11/07/2018, showed no evidence of reversible or fixed ischemia with calculated ejection fraction of 78%. HOSPITAL COURSE: The patient was admitted after presenting with increasing weakness, fatigue, and deconditioning. The patient with a significant history of multiple sclerosis as well as chronic lymphedema tarda. The patient underwent cardiac evaluation after initial concern for potential cardiac etiology of the profound weakness. Cardiolite stress testing was negative as stated previously and the patient received general supportive management including IV antibiotics for suspected urinary tract infection. The patient transitioned from IV antibiotics to Omnicef to complete a 6-day course of antibiotics. The patient was also evaluated by the Neurology Service due to history of multiple sclerosis. The patient received high-dose Solu-Medrol x3 days and was evaluated as a potential candidate for inpatient rehabilitation. The patient was able to stand by the bed and do wide exercises with contact guard assistance and was deemed appropriate for ongoing inpatient rehabilitation after discharge. The patient has been approved and will transfer to inpatient rehabilitation on 11/14/2018. I have examined the patient at the time of discharge and discussed followup instructions. The patient verbalized understanding and in agreement and ready for discharge on 11/14/2018. DISCHARGE MEDICATIONS: 1. Baclofen 20 mg 1 tablet p.o. b.i.d. 2. Carbamazepine extended release 200 mg p.o. b.i.d. 3. Lasix 40 mg p.o. daily. 4. Interferon beta 30 mcg intramuscularly q.7 days. 5. Klor-Con 20 mEq p.o. q.a.m. 6. Enteric-coated aspirin 81 mg p.o. daily. 7. Lovenox 40 mg subcutaneously daily. FOLLOWUP: The patient may follow up with her primary care provider, Dr. Norman Schuler after discharge from inpatient rehabilitation. CONDITION ON DISCHARGE: Fair. ACTIVITY: Ad mark, rolling walker with standby/contact guard assistance with fall risk precautions. DIET: Regular. CODE STATUS: Full. DISPOSITION: [facility] 11/14/2018. Job ID: [id number]
[2018-11-14 13:14] VITALS: BP 136/72
== END 2018-11-14 14:47 | DRG 59 ==
LOC: ERS 23:13 → INTOOBSV 11-06 01:56 → ERHOLD 11-06 01:56 → 2NO 11-06 16:20 → OBSVTOIN 11-07 20:39
PROVIDERS: ADMIT Internal Medicine; ATTEND Internal Medicine
DX: G35 Multiple sclerosis (principal); N39.0 Urinary tract infection, site not specified; E87.1 Hypo-osmolality and hyponatremia; I10 Essential (primary) hypertension; R74.8 Abnormal levels of other serum enzymes; E87.6 Hypokalemia; B95.2 Enterococcus as the cause of diseases classified elsewhere; I89.0 Lymphedema, not elsewhere classified; M25.562 Pain in left knee; M25.561 Pain in right knee; M25.559 Pain in unspecified hip
CPT/HCPCS: 36415; 51701; 71045; 78452; 80048; 80053; 81003; 81015; 82550; 82553; 83735; 83880; 84484; 85025; 87077; 87086; 87186; 93005; 93017; 94760; 96365; 96375; A9500; J0153; J0360; J0696; J1650; J3475; J7050

== ENCOUNTER 2019-04-13 10:30 | Outpatient (CLI) | payer MEDICARE, BC ==
--- NOTE | 2019-04-13 15:44 | PRG ---
DATE OF SERVICE: 04/13/2019 HISTORY: Ms. Teri Harris is a very pleasant 78-year-old, who [facility] for evaluation of right and left lower extremity edema. At the time of the patient's initial presentation to the [facility] on 01/15/2018, the patient stated that she had edema of her right and left lower extremities for approximately 4 years. She stated that she had been prescribed compression stockings in the past. After her visit on 01/30/2018, the patient received a pneumatic pump for in-home lymphedema therapy. The patient states that she utilized her pneumatic pump on a weekly basis. The patient is now residing at [facility]. PHYSICAL EXAMINATION: VITAL SIGNS: Temperature 98.3, pulse 86, respirations 21, blood pressure 160/90. EXTREMITIES: No open wounds are present over the right or left lower leg. No cellulitis of the right or left lower leg is present. No maceration of the skin of the right or left lower leg is present. Edema of the right and left lower extremities is present on exam today. Circumferences of the right lower extremity at the ankle, calf, knee, and thigh are 32.5 cm, 43 cm, 49 cm, and 72 cm. Circumferences of the left lower extremity at the ankle, calf, knee, and thigh are 34 cm 47.5 cm, 49.5 cm, and 72 cm. ASSESSMENT AND PLAN: 1. Lymphedema tarda. Orders will be transmitted to [facility] for lymphedema therapy with the patient's pneumatic pump on a daily basis. The patient has been told that her son will need to bring her lymphedema pump to [facility], so that she may receive lymphedema therapy. The patient previously declined referral for evaluation for venous ablation. I will see Ms. Harris again as needed after she has begun utilizing her lymphedema pump for 45 minutes for each lower extremity on a daily basis. The patient understands and is in agreement with the preceding treatment plan. The patient previously declined referral for evaluation for venous ablation. 2. Multiple sclerosis. 3. History of hypertension. Job ID: [id number]
== END 2019-04-13 10:31 | disposition home or self-care (01) ==
LOC: WCC 10:30
PROVIDERS: ATTEND Family Medicine
DX: I89.0 Lymphedema, not elsewhere classified (principal); G35 Multiple sclerosis; Z86.79 Personal history of other diseases of the circulatory system
CPT/HCPCS: 97602

== ENCOUNTER 2019-10-26 16:08 | Inpatient (IN) | payer MEDICARE, BC, MEDICAID ==
[2019-10-26 16:47] LABS: Hemoglobin 15.8 g/dL (12.0-16.0); Mean Corpuscular HGB CONC 34.6 g/dL (32.0-36.0); Mean Corpuscular Hemoglobin 30.2 pg (27.0-31.0); Mean Corpuscular Volume 87.4 fL (78.0-98.0); Mean Platelet Volume 7.7 fL (7.4-10.4); Platelet Count 370 thou/uL (130-400); Red Blood Cell (RBC) Count 5.22 mill/uL (4.20-5.40); White Blood Cell (WBC) Count 16.7 thou/uL (4.8-10.8)
--- NOTE | 2019-10-26 16:47 | RAD ---
Exam: Chest one view HISTORY:Fever Comparison: 11/06/2018 FINDINGS: Cardiac silhouette:Upper normal cardiac silhouette Aorta: Atherosclerosis of the aorta Pulmonary vessels: Normal Costophrenic angles: Clear LUNGS: Interstitial opacities throughout the lung parenchyma Pneumothorax: None Osseous abnormalities: None IMPRESSION: 1. Patchy interstitial opacities the lung parenchyma. Correlate for edema or infiltrate. 2. Atherosclerosis.
[2019-10-26 16:51] LABS: Bacteria/HPF 4+ HPF (None Seen); Bilirubin Negative (Negative); Blood, Urine 3+ (Negative); Clarity Extra Turbid (Clear); Glucose, Urine (Dipstick) Greater than 1000 mg/dL (Negative); Leukocyte 500 Leu/uL (Negative); Nitrite Negative (Negative); Protein, Urine (Dipstick) 300 mg/dL (Neg-Trace); RBC/HPF Greater than 50 HPF (0-3); Squamous Epithelial 0-3 HPF (0-3); Urobilinogen Normal mg/dL (Less than 2); WBC/HPF Greater than 50 HPF (0-3)
[2019-10-26 17:04] LABS: Band 9 % (5-11); Lymphocytes 5 % (21-51); MDiff Complete? YES; Monocytes 6 % (0-10); Neutrophil 80 % (42-75); Platelet Morphology Comment Appears Adequate; RBC Morphology Normal
[2019-10-26 17:06] LABS: ALT (SGPT) 10 U/L (8-55); AST (SGOT) 13 U/L (5-34); Albumin 3.5 g/dL (3.4-4.8); Alkaline Phosphatase 89 U/L (40-110); Anion Gap 23 mmol/L (10-20); BUN (Urea Nitrogen) 10 mg/dL (9.8-20.1); Bilirubin, Total 0.6 mg/dL (0.2-1.2); CK (CPK) 18 U/L (29-168); Calc. Creatinine Clearance 0 mL/min (70-130); Calcium 11.4 mg/dL (7.8-10.44); Carbon Dioxide 16 mmol/L (23-31); Chloride 99 mmol/L (98-107); Estimated GFR-MDRD 56; Globulin 5.1 g/dL (2.4-3.5); Glucose 429 mg/dL (83-110); Lipase 142 U/L (8-78); Potassium 4.2 mmol/L (3.5-5.1); Protein, Total 8.6 g/dL (6.0-8.3); Sodium 134 mmol/L (136-145)
[2019-10-26] MEDS ORDERED: Piperacillin/Tazobactam 4.5 GM VIAL ONE (17:24)
[2019-10-26] MEDS ORDERED: Vancomycin 1.5 GRAM/300 ML BAG 1.5 GM in Premix Bag 1 BAG IVPB SCH (18:30)
[2019-10-26] MEDS ORDERED: Insulin Regular 100 units/100 ml in NS IVPB SCH (19:00)
[2019-10-26] MEDS ORDERED: CCU Electrolyte Replacement 1 EACH FS ONE (19:50)
[2019-10-26] MEDS ORDERED: D5 1/2 NS w/20 mEq KCL 1,000 ML IV PRN ×2 (19:50→22:23)
[2019-10-26] MEDS ORDERED: NS 0.9% w/ 20 MEQ KCL 1,000 ML IV PRN ×4 (19:50→22:25)
[2019-10-26] MEDS ORDERED: CCU Electrolyte Replacement 1 EACH IVPB ONE (19:50)
[2019-10-26] MEDS ORDERED: Ondansetron PF 4 MG/2 ML Vial IVP PRN ×2 (19:50→22:25)
[2019-10-26] MEDS ORDERED: Benzonatate 100 MG CAP PO PRN ×2 (19:50→22:22)
[2019-10-26] MEDS ORDERED: Dextrose 5 %-0.45 % NaCl 1,000 ML IV PRN (19:50)
[2019-10-26] MEDS ORDERED: Ondansetron ODT 4 MG TAB PO PRN ×2 (19:50→22:25)
[2019-10-26] MEDS ORDERED: Sodium Chloride 0.9% 1,000 ML IV PRN ×8 (19:50→22:24)
[2019-10-26] MEDS ORDERED: Acetaminophen 500 MG TAB PO PRN ×2 (19:50→22:22)
[2019-10-26] MEDS ORDERED: HUMULIN R 100 UNITS in Sodium Chloride 0.9% 100 ML IVPB SCH (19:50)
[2019-10-26] MEDS ORDERED: Potassium Chloride 40 MEQ in Premix Bag 1 BAG IVPB PRN ×2 (19:56→22:26)
[2019-10-26] MEDS ORDERED: Magnesium Oxide 400 MG TAB PO PRN ×4 (19:56→22:27)
[2019-10-26] MEDS ORDERED: Potassium Phosphate 9 MMOL in Sodium Chloride 0.9% 100 ML IVPB PRN ×2 (19:56→22:28)
[2019-10-26] MEDS ORDERED: Potassium Chloride 20 MEQ TAB PO PRN ×2 (19:56→22:25)
[2019-10-26] MEDS ORDERED: Magnesium 2 GM/50 ML 2 GM in Premix Bag 1 BAG IVPB PRN ×2 (19:56→22:27)
[2019-10-26] MEDS ORDERED: PHOS-NAK 1 PKT PACK PO PRN ×4 (19:56→22:29)
[2019-10-26] MEDS ORDERED: CCU ELECTROLYTE REPLACEMENT PROTOCOL FS PRN ×2 (19:56→22:26)
[2019-10-26] MEDS ORDERED: Potassium Phosphate 12 MMOL in Sodium Chloride 0.9% 250 ML 250 ML IV PRN ×2 (19:56→22:29)
[2019-10-26] MEDS ORDERED: Potassium Chloride 40 MEQ in Sodium Chloride 0.9% 250 ML 250 ML IVPB PRN ×2 (19:56→22:26)
[2019-10-26] MEDS ORDERED: Potassium Phosphate 15 MMOL in Sodium Chloride 0.9% 250 ML 250 ML IV PRN ×2 (19:56→22:30)
[2019-10-26 20:41] LABS: Anion Gap 21 mmol/L (10-20); BUN (Urea Nitrogen) 11 mg/dL (9.8-20.1); Calc. Creatinine Clearance 0 mL/min (70-130); Calcium 10.6 mg/dL (7.8-10.44); Carbon Dioxide 13 mmol/L (23-31); Chloride 103 mmol/L (98-107); Estimated GFR-MDRD 56; Glucose 399 mg/dL (83-110); Sodium 133 mmol/L (136-145)
[2019-10-26] MEDS ORDERED: Famotidine/PF 20 mg/2ml Vial SLOW IVP SCH ×2 (21:00→22:30)
[2019-10-26] MEDS ORDERED: Vancomycin HCl 1 GM in Sodium Chloride 0.9% 250 ML 250 ML IVPB SCH ×2 (21:00→21:30)
[2019-10-26 21:49] VITALS: BMI 35.9
[2019-10-26 22:25] LABS: Actual Bicarbonate (HCO3a) 16.6 mEq/L (22-28); Base Excess (BEa) -6.3 mEq/L (-2.0 to +3.0); CO2 Tension 26.8 mmHg (35.0-45.0); O2 Tension (PaO2) 83.1 mmHg (> 70.0); pH, Arterial 7.41 (7.35-7.45)
[2019-10-26 22:26] LABS: Calcium, Ionized 1.35 mmol/L (1.12-1.30); Hemoglobin (Hb) 14.3 g/dL (12.0-16.0); Potassium - ABG Lab 3.52 mmol/L (3.70-5.30); Puncture Site RBRA
[2019-10-26 22:26] LABS: Calcium 10.9 mg/dL (7.8-10.44); Magnesium 1.6 mg/dL (1.6-2.6); Phosphorus 2.9 mg/dL (2.3-4.7)
[2019-10-26] MEDS: Piperacillin/Tazobactam 4.5 GM in Sodium Chloride 0.9% 100 ML IVPB SCH (23:57)
[2019-10-26] MEDS ORDERED: Piperacillin/Tazobactam 4.5 GM in Sodium Chloride 0.9% 100 ML IVPB SCH (23:59)
--- NOTE | 2019-10-27 01:27 | HP ---
PRIMARY CARE PROVIDER: Paul Ratliff MD CHIEF COMPLAINT: Fever and altered mental status. HISTORY OF PRESENT ILLNESS: This is a 78-year-old female, who is a current resident at [facility] over the last 1 year according to the patient's son, who provides the majority of the history. The patient with altered mentation and lethargy, presenting with fever and suspected urinary tract infection. The patient's temperature was up to 101.9 degrees Fahrenheit and discovered by [facility]dc personnel with cough, congestion, nausea and vomiting. The patient was initially evaluated by EMS personnel and initiated on IV fluids with initial workup in the emergency room revealing hyperglycemia and evidence of diabetic ketoacidosis without a prior history of diabetes mellitus. Urinalysis was also suspicious for infection, at which point, the patient did meet sepsis criteria. The patient received IV vancomycin and Zosyn in addition to intravenous normal saline x2 L and initiated on an insulin infusion. The patient's son states his mother is currently receiving therapy and general care with activities of daily living due to nonambulatory status. Normally, the patient is able to converse without difficulty and is oriented x3. PAST MEDICAL HISTORY: 1. Multiple sclerosis, chronic. 2. Recurrent urinary tract infections. 3. Generalized weakness, nonambulatory status. 4. Hypertension. 5. Lymphedema tarda, chronic. PAST SURGICAL HISTORY: 1. Status post appendectomy. 2. Status post bilateral tubal ligation. 3. Status post renal lithiasis with resection. 4. Status post hysterectomy. CURRENT MEDICATIONS: Unavailable. Most recently noted in November 2018; 1. Aspirin 81 mg p.o. daily. 2. Lovenox 40 mg subcutaneously daily. 3. Avonex 30 mcg intramuscularly q.7 days. Complete list will need to be obtained from family members. ALLERGIES: NO KNOWN DRUG ALLERGIES. FAMILY HISTORY: No inheritable diseases per patient's family report. SOCIAL HISTORY: Resident of [facility] over the last year. Nonambulatory status at baseline. No current alcohol, tobacco, or illicit drug use. Requiring assistance with all activities of daily living. REVIEW OF SYSTEMS: Unobtainable due to patient's altered mental status. PHYSICAL EXAMINATION: VITAL SIGNS: On admission, blood pressure 107/77, pulse 102, respiratory rate 22, temperature 101.6 degrees Fahrenheit, O2 saturation 100% on room air. GENERAL APPEARANCE: This is a 78-year-old female, lethargic, opens eyes to name, states one word response, in [id number] distress. HEENT: Pupils are equal, round, reactive to light and accommodation. Extraocular muscles are intact. No scleral icterus. No conjunctival injection. Nares are patent. OP is clear. Oral mucosa dry. NECK: Supple. No cervical adenopathy. No thyromegaly. No carotid bruits. No JVD appreciated. Cervical spine with full active and passive range of motion. No meningeal signs noted. CHEST: Coarse breath sounds bilaterally and in the bases. CARDIOVASCULAR: S1, S2 with tachycardia. ABDOMEN: Obese, soft, nontender, and nondistended. Bowel sounds are positive in all 4 quadrants. There is no palpable mass. No hepatosplenomegaly. No rebound or guarding noted. EXTREMITIES: Warm and dry with fair turgor. Nonpitting edema to the knees bilaterally. Pulses palpable distally at the dorsalis pedis, posterior tibial, and popliteal arteries bilaterally. Capillary refill less than 2 seconds. NEUROLOGIC: Lethargic, opens eyes to name. One-word responses to questions. Nonambulatory at baseline. PERTINENT LABORATORY AND X-RAY FINDINGS: Sodium 134, potassium 4.2, chloride 99, CO2 of 16, BUN 10, creatinine 1.14, estimated GFR 56, glucose 429. Lactic acid level 1.3, calcium 11.4. LFTs within normal limits. Total CK of 18, troponin I 0.024. BNP 17. Lipase 142. TSH 0.54. CBC showed a white blood cell count of 16.7, hemoglobin 16, hematocrit 46, platelet count 370 with 80% neutrophils. Urinalysis showed positive protein, greater than 1000 glucose, positive ketones, 3+ blood, positive leukocyte esterase with greater than 50 RBCs and WBCs per high-power field. Beta-hydroxybutyrate level 6.06. Influenza A and B antigen dated 10/26/2019, negative. Portable chest x-ray dated 10/26/2019, showed patchy interstitial opacities in bilateral lung parenchyma. Telemetry monitoring shows sinus tachycardia with heart rates in the 110s. ASSESSMENT AND PLAN: 1. Sepsis secondary to pneumonia and urinary tract infection. The patient will be admitted to the Critical Care Unit. We will continue general sepsis protocol with IV fluid resuscitation. Serial lactic acid level per protocol. Continue IV Zosyn 4.5 g IV q.6 hours with additional vancomycin 1 g IV q.12 hours and Levaquin 750 mg IV q.24 hours. Blood and urine cultures pending. 2. Diabetic ketoacidosis. We will continue DKA protocol with aggressive IV fluid hydration. Continue insulin infusion to titrate to clinical response. Repeat beta hydroxybutyrate level in the a.m. Basic metabolic panel q.4 hours per protocol. Check A1c level in the a.m. 3. Acute kidney injury. Suspect multifactorial including #1 and #2. Avoid nephrotoxic agents and limit contrast exposure. Continue IV fluid hydration and repeat creatinine in the a.m. 4. Hypercalcemia. Secondarily to acute kidney injury. We will continue IV fluids as outlined previously. Avoid calcium supplementation. 5. Acute metabolic encephalopathy secondary to #1. We will continue general supportive management as outlined in #1. Serial neurologic exams. Anticipate improvement in the next 24 hours. 6. Prophylaxis. SCDs while in bed. Pepcid 20 mg IV q.12 hours. CODE STATUS: Full. Surrogate medical decision maker is patient's son. Job ID: [id number]
[2019-10-27] MEDS: HUMULIN R 100 UNITS in Sodium Chloride 0.9% 100 ML IVPB SCH ×2 (04:17→12:40)
[2019-10-27 04:33] LABS: Anion Gap 18 mmol/L (10-20); BUN (Urea Nitrogen) 9 mg/dL (9.8-20.1); Calc. Creatinine Clearance 92 mL/min (70-130); Carbon Dioxide 13 mmol/L (23-31); Chloride 113 mmol/L (98-107); Estimated GFR-MDRD 80; Glucose 254 mg/dL (83-110); Potassium 6.3 mmol/L (3.5-5.1); Sodium 138 mmol/L (136-145)
[2019-10-27] MEDS: Dextrose 5 %-0.45 % NaCl 1,000 ML IV PRN ×3 (04:53→14:03)
[2019-10-27] MEDS: Piperacillin/Tazobactam 4.5 GM in Sodium Chloride 0.9% 100 ML IVPB SCH ×2 (05:35→11:08)
--- NOTE | 2019-10-27 08:28 | CON ---
DATE OF CONSULTATION: CONSULTING PHYSICIAN: Hospitalist Group. REASON FOR CONSULTATION: ICU management. HISTORY OF PRESENT ILLNESS: Ms. Harris is a pleasant 78-year-old female, who lives in a local assisted. She was brought in last night with high fever, urosepsis, and new onset diabetes with diabetic ketoacidosis. She now feels better and has no complaints after being fluid resuscitated, started on insulin drip. PAST MEDICAL HISTORY: 1. Multiple sclerosis. 2. Recurrent urinary tract infections. 3. Hypertension. 4. Lymphedema. PAST SURGICAL HISTORY: 1. Appendectomy. 2. Tubal ligation. 3. Lithotripsy. 4. Hysterectomy. MEDICATIONS: Prior to admission 1. Aspirin. 2. Lovenox. 3. Avonex. 4. Tramadol. 5. Clonidine. 6. Famotidine. 7. Polyethylene glycol. 8. Zofran. 9. Benadryl. 10. Lactulose. 11. Calcium carbonate. 12. Baclofen. FAMILY MEDICAL HISTORY: Unremarkable. ALLERGIES: NONE. SOCIAL HISTORY: Nonsmoker, does not consume alcohol. She is retired. REVIEW OF SYSTEMS: She has had fever, chills, polyuria, polydipsia. PHYSICAL EXAMINATION: VITAL SIGNS: Temperature 98.9, pulse 98, blood pressure 160/102. GENERAL: She is awake and in no distress. HEENT: Pupils reactive. Sclerae anicteric. Oropharynx, she is leukoplakia. NECK: No adenopathy or JVD. LUNGS: Clear to auscultation without wheezing or rhonchi. CARDIOVASCULAR: S1, S2, regular without audible murmur, rub, or gallop. ABDOMEN: Soft and nontender to palpation. EXTREMITIES: No clubbing or cyanosis. She has trace edema throughout. LABORATORY DATA: White blood cell count 16.7, hematocrit 45.6, and platelet count 370. PH of 7.41, pCO2 of 26, PO2 of 83. Sodium 138, potassium 6.3, chloride 113, CO2 of 13, anion gap 12, BUN 9, creatinine 0.8, glucose 254. Urinalysis showed raz-[id number]-count red blood cells and white blood cells. Beta-hydroxybutyrate was 5.7. Chest x-ray, no acute findings. ASSESSMENT: 1. Urosepsis. 2. New onset diabetes with ketoacidosis. 3. Multiple sclerosis. PLAN: Continue treatment of DKA as you are. Agree with antibiotics. This patient should be able to transition off an insulin drip later today. Antibiotic coverage seems appropriate. We will be happy to follow with you while she is in the ICU. The above encompassed 50 minutes of time, of that time, greater than 50% spent with the patient and/or the patient unit's in the hospital. Of note, potassium level needs to be rechecked. Job ID: [id number]
[2019-10-27] MEDS ORDERED: Famotidine/PF 20 mg/2ml Vial SLOW IVP SCH (09:00)
[2019-10-27 12:32] LABS: Anion Gap 13 mmol/L (10-20); BUN (Urea Nitrogen) 7 mg/dL (9.8-20.1); Calc. Creatinine Clearance 95 mL/min (70-130); Calcium 10.1 mg/dL (7.8-10.44); Carbon Dioxide 23 mmol/L (23-31); Chloride 107 mmol/L (98-107); Estimated GFR-MDRD 83; Glucose 182 mg/dL (83-110); Magnesium 1.5 mg/dL (1.6-2.6); Potassium 3.5 mmol/L (3.5-5.1); Sodium 139 mmol/L (136-145)
--- NOTE | 2019-10-27 14:05 | PDOC.HOSPP ---
- Subjective Encounter Date: 10/27/19 Encounter Time: 11:00 Subjective: awake, not fully oriented no sob or chest pain is very weak to mobilize her extremities has h/o multiple sclerosis and bed bound at [facility] - Objective Vital Signs & Weight: Vital Signs (12 hours) Temp Pulse Ox 10/27/19 12:00 99.3 F 10/27/19 11:29 100 10/27/19 07:40 100 10/27/19 07:00 98.9 F 10/27/19 04:00 98.6 F Weight Weight 229 lb 0.964 oz Most Recent Monitor Data Heart Rate from ECG 86 NIBP 139/69 NIBP BP-Mean 92 Respiration from ECG 25 SpO2 100 I&O: 10/26/19 10/27/19 10/28/19 06:59 06:59 06:59 Intake Total 3300 Output Total 500 300 Balance 2800 -300 Result Diagrams: 10/26/19 16:25 10/27/19 11:55 Additional Labs: Accuchecks 10/27/19 10/27/19 10/27/19 13:28 11:58 11:18 POC Glucose 176 H 186 H 194 H 10/27/19 10/27/19 10/27/19 10:23 09:33 08:19 POC Glucose 189 H 213 H 192 H 10/27/19 10/27/19 10/27/19 07:13 06:09 04:59 POC Glucose 203 H 219 H 251 H 10/27/19 10/27/19 10/27/19 04:17 03:12 02:05 POC Glucose 249 H 252 H 240 H 10/27/19 10/27/19 10/26/19 01:05 00:03 23:09 POC Glucose 249 H 281 H 312 H 10/26/19 10/26/19 10/26/19 22:12 21:32 20:47 POC Glucose 358 H 367 H 374 H 10/26/19 10/26/19 19:32 18:07 POC Glucose 408 H 396 H Hospitalist ROS - Medication Medications: Active Medications Generic Name Dose Route Start Last Admin Trade Name Freq PRN Reason Stop Dose Admin Famotidine 20 mg 10/27/19 09:00 10/27/19 08:39 Pepcid SLOW IVP 20 mg Q12HR KALEIGH Administration Dextrose/Sodium Chloride 1,000 mls @ 250 mls/hr 01/13/20 22:22 10/27/19 12:39 D5 1/2 Ns IV 1,000 mls .Q4H PRN Administration Step 4 of DKA Protocol Protocol Potassium Chloride/Dextrose/Sod Cl 1,000 mls @ 250 mls/hr 10/26/19 22:23 02:04 D5 1/2 Ns W/20 Meq Kcl IV 1,000 mls .Q4H PRN Administration Step 4 of DKA Protocol Protocol Insulin Human Regular 100 101 mls @ 0 mls/hr 10/26/19 22:30 10/27/19 12:40 units/ Sodium Chloride IVPB 101 mls INF KALEIGH Administration Protocol Titrate Levofloxacin 750 mg/ Device 150 mls @ 100 mls/hr 10/26/19 22:30 10/26/19 22: 29 IVPB 150 mls Q24HR KALEIGH Administration Potassium Chloride/Sodium Chloride 1,000 mls @ 500 mls/hr 10/26/19 22:24 00:03 Ns 0.9% W/ 20 Meq Kcl IV 1,000 mls .Q2H PRN Administration Step 2 of DKA Protocol Protocol Piperacillin Sod/Tazobactam 100 mls @ 200 mls/hr 10/26/19 23:59 10/27/19 11: 08 Sod 4.5 gm/ Sodium Chloride IVPB 100 mls Q6HR KALEIGH Administration Magnesium Oxide 400 mg 10/26/19 22:26 10/26/19 23:57 Magnesium Oxide PO 400 mg BIDPRN PRN Administration FOR SERUM MAG 1.4 - 2.0 - Exam General Appearance: awake alert, ill appearing Eye: PERRL, anicteric sclera ENT: no oropharyngeal lesions, moist mucosa Neck: supple, no JVD Heart: RRR, no murmur Respiratory: no wheezes, no rales Gastrointestinal: soft, non-tender, non-distended, normal bowel sounds Extremities: no cyanosis, 1+ LE edema Neurological - other findings: functional quadriplegia Hosp A/P (1) DKA (diabetic ketoacidoses) Code(s): E11.10 - TYPE 2 DIABETES MELLITUS WITH KETOACIDOSIS WITHOUT COMA Status: Acute Qualifiers: Diabetes mellitus type: type 2 Diabetes mellitus complication detail: without coma Qualified Code(s): E11.10 - Type 2 diabetes mellitus with ketoacidosis without coma (2) Sepsis Code(s): A41.9 - SEPSIS, UNSPECIFIED ORGANISM Status: Acute Qualifiers: Sepsis type: sepsis due to unspecified organism (3) DM type 2 (diabetes mellitus, type 2) Status: Acute Qualifiers: Diabetes mellitus chcf insulin use: without intermediate frame tender use (4) 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 Code(s): G35 - MULTIPLE SCLEROSIS; R53.2 - FUNCTIONAL QUADRIPLEGIA Status: Chronic (5) UTI (urinary tract infection) Status: Acute Qualifiers: Urinary tract infection type: acute cystitis Hematuria presence: without hematuria Qualified Code(s): N30.00 - Acute cystitis without hematuria (6) Acquired lymphedema of leg Code(s): I89.0 - LYMPHEDEMA, NOT ELSEWHERE CLASSIFIED Status: Chronic (7) HTN (hypertension) Code(s): I10 - ESSENTIAL (PRIMARY) HYPERTENSION Status: Chronic Qualifiers: Hypertension type: essential hypertension Qualified Code(s): I10 - Essential (primary) hypertension (8) Multiple sclerosis Code(s): G35 - MULTIPLE SCLEROSIS Status: Chronic (9) Physical deconditioning Code(s): R53.81 - OTHER MALAISE Status: Chronic - Plan is on insulin drip at 10u/hr, taper and discontinue in 3 hours start lantus 10 u sc x1 dose 2 hrs prior to discontinuing iv insulin may tx to imcu OOB to chair, early mobilization to prevent morbidity i.spirometry on vanc, zosyn and levaquin prelim blood and urine cs show no growth continue Normal saline at 100mls/hr after insulin drip is discontinued (off dka protocol) gap has closed ?new onset dm prognosis is guarded, likely has advanced MS with functional quadriplegia, palliative care for code status/goals of care.
[2019-10-27] MEDS ORDERED: Dextrose 5% in Water 1,000 ML IV PRN (14:30)
[2019-10-27] MEDS ORDERED: Dextrose 50% Abboject 50 ML SYRINGE SLOW IVP PRN (14:30)
[2019-10-27] MEDS ORDERED: Insulin Glargine 10 UNITS in Pre-Filled Syringe SC SCH (14:45)
[2019-10-27] MEDS ORDERED: Vancomycin 1.5 GRAM/300 ML BAG 1.5 GM in Premix Bag 1 BAG IVPB SCH (18:00)
[2019-10-27] MEDS ORDERED: Metoprolol Tartrate 50 MG TAB PO SCH (18:45)
[2019-10-27] MEDS: Sodium Chloride 0.9% 1,000 ML IV SCH (18:49)
[2019-10-27] MEDS: Baclofen 10 MG TAB PO SCH (20:32)
[2019-10-27] MEDS: Insulin Glargine 10 UNITS in Pre-Filled Syringe SC SCH (20:33)
[2019-10-27] MEDS: Piperacillin/Tazobactam 3.375 GM in Sodium Chloride 0.9% 100 ML IVPB SCH (22:38)
[2019-10-28 04:29] LABS: Anion Gap 12 mmol/L (10-20); BUN (Urea Nitrogen) 5 mg/dL (9.8-20.1); Calc. Creatinine Clearance 104 mL/min (70-130); Calcium 9.7 mg/dL (7.8-10.44); Carbon Dioxide 20 mmol/L (23-31); Chloride 108 mmol/L (98-107); Estimated GFR-MDRD Greater than 90; Glucose 232 mg/dL (83-110); Potassium 3.3 mmol/L (3.5-5.1); Sodium 137 mmol/L (136-145)
[2019-10-28] MEDS: Piperacillin/Tazobactam 3.375 GM in Sodium Chloride 0.9% 100 ML IVPB SCH ×3 (05:00→21:28)
[2019-10-28] MEDS: Sodium Chloride 0.9% 1,000 ML IV SCH ×3 (05:00→23:54)
[2019-10-28] MEDS: HumaLOG 300 UNITS/3 ML VIAL SC PRN ×4 (05:50→20:42)
[2019-10-28] MEDS: Multivit, Therapeutic 1 TAB PO SCH (08:37)
[2019-10-28] MEDS: Aspirin Chewable 81 MG TAB PO SCH (08:37)
[2019-10-28] MEDS: Famotidine 20 MG TAB PO SCH (08:37)
[2019-10-28] MEDS: Metoprolol Tartrate 25 MG TAB PO SCH ×2 (08:37→20:41)
[2019-10-28] MEDS: Polyethylene Glycol 3350 17 GM Packet PO SCH (08:37)
--- NOTE | 2019-10-28 08:55 | PRG ---
DATE OF SERVICE: 10/28/2019 SUBJECTIVE: She is off the insulin drip. She feels better. She had no acute complaints. OBJECTIVE: VITAL SIGNS: Temperature 98.8, pulse 85, blood pressure 163/92, O2 saturation 100%. HEENT: Unremarkable. NECK: No JVD. LUNGS: Clear. CARDIAC: S1, S2. Regular. ABDOMEN: Soft. EXTREMITIES: No edema. LABORATORY DATA: Sodium 137, potassium 3.3, chloride 108, CO2 of 20, anion gap is down to about 9, BUN 5, creatinine 0.7, glucose 232. White blood cell count 16.7, hematocrit 45.6, and platelet count 370. ASSESSMENT: 1. Resolved diabetic ketoacidosis. 2. Urosepsis. 3. Multiple sclerosis. 4. Dementia. PLAN: The patient will be transferred out to the [facility]. She is continuing antibiotics which can be consolidated when the results of her cultures are known. She has been transitioned over to sliding scale and Lantus insulin. I will go ahead and start her on a diet. Job ID: [id number]
[2019-10-28] MEDS: Insulin Glargine 10 UNITS in Pre-Filled Syringe SC SCH ×2 (10:49→20:41)
[2019-10-28] MEDS: Baclofen 10 MG TAB PO SCH ×2 (10:50→20:41)
--- NOTE | 2019-10-28 12:54 | PDOC.HOSPP ---
- Subjective Encounter Date: 10/28/19 Encounter Time: 10:15 Subjective: Patient seen and examined. No new complaints. No overnight events - Objective Vital Signs & Weight: Vital Signs (12 hours) Temp Pulse Ox 10/28/19 11:19 97.0 F L 10/28/19 09:00 100 10/28/19 08:00 98.8 F 10/28/19 07:00 100 10/28/19 04:00 98.8 F Weight Weight 229 lb 0.964 oz Most Recent Monitor Data Heart Rate from ECG 85 NIBP 123/81 NIBP BP-Mean 95 Respiration from ECG 27 SpO2 100 I&O: 10/27/19 10/28/19 10/29/19 06:59 06:59 06:59 Intake Total 3050 4649 Output Total 500 1550 0 Balance 2550 3099 0 Result Diagrams: 10/26/19 16:25 10/28/19 03:47 Additional Labs: Accuchecks 10/28/19 10/28/19 10/27/19 10:39 05:52 20:31 POC Glucose 222 H 258 H 195 H 10/27/19 10/27/19 10/27/19 17:26 16:15 15:15 POC Glucose 149 H 148 H 160 H 10/27/19 13:28 POC Glucose 176 H Radiology Reviewed by me: Yes EKG Reviewed by me: Yes Hospitalist ROS - Review of Systems Constitutional: denies: fever, chills, sweats, weakness, malaise, other Eyes: denies: pain, vision change, conjunctivae inflammation, eyelid inflammation, redness, other ENT: denies: ear pain, ear discharge, nose pain, nose discharge, nose congestion , mouth pain, mouth swelling, throat pain, throat swelling, other Respiratory: denies: cough, dry, shortness of breath, hemoptysis, SOB with excertion, pleuritic pain, sputum, wheezing, other Cardiovascular: denies: chest pain, palpitations, orthopnea, paroxysmal noc. dyspnea, edema, light headedness, other Gastrointestinal: denies: nausea, vomiting, abdominal pain, diarrhea, constipation, melena, hematochezia, other Genitourinary: denies: dysuria, frequency, incontinence, hematuria, retention, other - Medication Medications: Active Medications Generic Name Dose Route Start Last Admin Trade Name Freq PRN Reason Stop Dose Admin Aspirin 81 mg 10/28/19 09:00 10/28/19 08:37 Aspirin Chewable PO 81 mg DAILY KALEIGH Administration Baclofen 20 mg 10/27/19 21:00 10/28/19 10:50 Lioresal PO 20 mg BID KALEIGH Administration Carbamazepine 200 mg 10/27/19 21:00 10/28/19 10:49 Tegretol Xr PO 200 mg BID KALEIGH Administration Famotidine 20 mg 10/28/19 09:00 10/28/19 08:37 Pepcid PO 20 mg DAILY KALEIGH Administration Vancomycin HCl 1.5 gm/ Device 300 mls @ 200 mls/hr 10/27/19 18:00 10/27/19 17 :25 IVPB 300 mls 1800 KALEIGH Administration Insulin Glargine 10 units/ 0.1 mls @ 0 mls/hr 10/27/19 21:00 10/28/19 10:49 Miscellaneous Medication SC 0.1 mls BID KALEIGH Administration Piperacillin Sod/Tazobactam 100 mls @ 200 mls/hr 10/27/19 22:00 10/28/19 05: 00 Sod 3.375 gm/ Sodium Chloride IVPB 100 mls Q8HR KALEIGH Administration Sodium Chloride 1,000 mls @ 100 mls/hr 10/27/19 18:45 10/28/19 05:00 Normal Saline 0.9% IV 1,000 mls .Q10H KALEIGH Administration Insulin Human Lispro 0 units 10/27/19 14:30 10/28/19 10:53 Humalog SC 4 unit .MODERATE SLIDING SC PRN Administration Moderate Correctional Scale Levofloxacin 500 mg 10/27/19 20:00 10/27/19 20:32 Levaquin PO 500 mg 2000 KALEIGH Administration Metoprolol Tartrate 25 mg 10/28/19 09:00 10/28/19 08:37 Lopressor PO 25 mg BID KALEIGH Administration Multivitamins 1 tab 10/28/19 09:00 10/28/19 08:37 Theragran PO 1 tab DAILY KALEIGH Administration Polyethylene Glycol 17 gm 10/28/19 09:00 10/28/19 08:37 Miralax PO 17 gm DAILY KALEIGH Administration - Exam General Appearance: NAD, awake alert Eye: PERRL, anicteric sclera ENT: normocephalic atraumatic, no oropharyngeal lesions Neck: supple, symmetric, no JVD, no thyromegaly Heart: RRR, no murmur, no gallops, no rubs Respiratory: CTAB, no wheezes, no rales, no ronchi Gastrointestinal: soft, non-tender, non-distended, normal bowel sounds Extremities: no cyanosis, no clubbing, no edema Skin: normal turgor, no lesions Musculoskeletal: normal tone, normal strength Psychiatric: A&O x 3 Hosp A/P (1) DKA (diabetic ketoacidoses) Code(s): E11.10 - TYPE 2 DIABETES MELLITUS WITH KETOACIDOSIS WITHOUT COMA Status: Resolved Qualifiers: Diabetes mellitus type: type 2 Diabetes mellitus complication detail: without coma Qualified Code(s): E11.10 - Type 2 diabetes mellitus with ketoacidosis without coma (2) DM type 2 (diabetes mellitus, type 2) Status: Acute Qualifiers: Diabetes mellitus alf insulin use: without terminal gauger supervisor use (3) Sepsis Code(s): A41.9 - SEPSIS, UNSPECIFIED ORGANISM Status: Acute Qualifiers: Sepsis type: sepsis due to unspecified organism (4) 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 Code(s): G35 - MULTIPLE SCLEROSIS; R53.2 - FUNCTIONAL QUADRIPLEGIA Status: Chronic (5) Abnormal blood electrolyte level Code(s): E87.8 - OTH DISORDERS OF ELECTROLYTE AND FLUID BALANCE, NEC Status: Acute (6) Obesity (BMI 30-39.9) Code(s): E66.9 - OBESITY, UNSPECIFIED Status: Chronic - Plan old records reviewed/req, continue antibiotics 10/28/19 continue empiric antibiotics for suspected sepsis, so far culture negative, follow culture transfer to medical floor will repeat labs tomorrow and adjust insulin dose as needed medication reviewed and continue to provide symptomatic care and supportive care
[2019-10-28 17:28] LABS: Vancomycin, Trough 6.1 ug/mL
[2019-10-28] MEDS: Vancomycin HCl 1.25 GM in Sodium Chloride 0.9% 250 ML 250 ML IVPB SCH (18:36)
[2019-10-29] MEDS: Piperacillin/Tazobactam 3.375 GM in Sodium Chloride 0.9% 100 ML IVPB SCH ×3 (05:00→21:23)
[2019-10-29 05:22] LABS: #Basophils 0.1 thou/uL (0.0-0.2); #Eosinphils 0.1 thou/uL (0.0-0.7); #Lymphocytes 1.8 thou/uL (1.20-3.40); #Monocytes 0.5 thou/uL (0.11-0.59); #Neutrophils 3.5 thou/uL (1.40-6.50); %Basophils 0.9 % (0.0-1.0); %Eosinophils 2.2 % (0.0-10.0); %Lymphocytes 29.9 % (21.0-51.0); %Monocytes 8.3 % (0.0-10.0); %Neutrophils 58.8 % (42.0-75.0); Hemoglobin 12.9 g/dL (12.0-16.0); Mean Corpuscular HGB CONC 32.5 g/dL (32.0-36.0); Mean Corpuscular Hemoglobin 28.9 pg (27.0-31.0); Mean Platelet Volume 7.2 fL (7.4-10.4); Platelet Count 286 thou/uL (130-400); RBC Distribution Width 11.3 % (11.5-14.5); Red Blood Cell (RBC) Count 4.46 mill/uL (4.20-5.40)
[2019-10-29 05:29] LABS: Hemoglobin A1c Greater than 14.0 % (4.0-6.0)
[2019-10-29 05:39] LABS: Phosphorus 2.6 mg/dL (2.3-4.7)
[2019-10-29 05:42] LABS: ALT (SGPT) 7 U/L (8-55); AST (SGOT) 12 U/L (5-34); Albumin 2.5 g/dL (3.4-4.8); Alkaline Phosphatase 60 U/L (40-110); Anion Gap 12 mmol/L (10-20); BUN (Urea Nitrogen) 5 mg/dL (9.8-20.1); Bilirubin, Total 0.6 mg/dL (0.2-1.2); Calc. Creatinine Clearance 112 mL/min (70-130); Carbon Dioxide 19 mmol/L (23-31); Chloride 110 mmol/L (98-107); Estimated GFR-MDRD Greater than 90; Globulin 3.7 g/dL (2.4-3.5); Glucose 287 mg/dL (83-110); Magnesium 1.3 mg/dL (1.6-2.6); Protein, Total 6.2 g/dL (6.0-8.3); Sodium 138 mmol/L (136-145)
[2019-10-29] MEDS: HumaLOG 300 UNITS/3 ML VIAL SC PRN ×4 (06:04→20:22)
[2019-10-29] MEDS: Vancomycin HCl 1.25 GM in Sodium Chloride 0.9% 250 ML 250 ML IVPB SCH (06:05)
[2019-10-29] MEDS: Metoprolol Tartrate 25 MG TAB PO SCH ×2 (09:40→20:21)
[2019-10-29] MEDS: Aspirin Chewable 81 MG TAB PO SCH (09:40)
[2019-10-29] MEDS: Baclofen 10 MG TAB PO SCH ×2 (09:40→20:20)
[2019-10-29] MEDS: Famotidine 20 MG TAB PO SCH (09:40)
[2019-10-29] MEDS: Multivit, Therapeutic 1 TAB PO SCH (09:41)
[2019-10-29] MEDS: Insulin Glargine 10 UNITS in Pre-Filled Syringe SC SCH ×2 (09:41→20:21)
[2019-10-29] MEDS: Polyethylene Glycol 3350 17 GM Packet PO SCH (09:41)
[2019-10-29] MEDS: Sodium Chloride 0.9% 1,000 ML IV SCH (12:37)
[2019-10-29] MEDS ORDERED: Magnesium Sulfate 4 GM in Sodium Chloride 0.9% 250 ML 250 ML IVPB SCH (15:15)
[2019-10-29] MEDS ORDERED: Potassium Chloride 20 MEQ TAB PO SCH (15:15)
--- NOTE | 2019-10-29 15:16 | PDOC.HOSPP ---
- Subjective Encounter Date: 10/29/19 Encounter Time: 09:00 Subjective: Patient seen and examined. No new complaints. No overnight events - Objective Vital Signs & Weight: Vital Signs (12 hours) Temp Pulse Resp BP Pulse Ox 10/29/19 08:00 94 L 10/29/19 07:15 98.6 F 69 18 164/77 H 94 L 10/29/19 03:58 99.3 F 72 18 142/66 H 96 Weight Weight 229 lb 0.964 oz Most Recent Monitor Data Heart Rate from ECG 85 NIBP 123/81 NIBP BP-Mean 95 Respiration from ECG 25 SpO2 100 I&O: 10/28/19 10/29/19 10/30/19 06:59 06:59 06:59 Intake Total 4649 1790 360 Output Total 1550 1075 650 Balance 3099 715 -290 Result Diagrams: 10/29/19 05:13 10/29/19 05:13 Additional Labs: Accuchecks 10/29/19 10/29/19 10/28/19 10:50 03:58 19:10 POC Glucose 333 H 283 H 269 H 10/28/19 15:31 POC Glucose 212 H Hospitalist ROS - Review of Systems ENT: denies: ear pain, ear discharge, nose pain, nose discharge, nose congestion , mouth pain, mouth swelling, throat pain, throat swelling, other Respiratory: denies: cough, dry, shortness of breath, hemoptysis, SOB with excertion, pleuritic pain, sputum, wheezing, other Cardiovascular: denies: chest pain, palpitations, orthopnea, paroxysmal noc. dyspnea, edema, light headedness, other Gastrointestinal: denies: nausea, vomiting, abdominal pain, diarrhea, constipation, melena, hematochezia, other Genitourinary: denies: dysuria, frequency, incontinence, hematuria, retention, other Musculoskeletal: denies: neck pain, shoulder pain, arm pain, back pain, hand pain, leg pain, foot pain, other - Medication Medications: Active Medications Generic Name Dose Route Start Last Admin Trade Name Freq PRN Reason Stop Dose Admin Aspirin 81 mg 10/28/19 09:00 10/29/19 09:40 Aspirin Chewable PO 81 mg DAILY KALEIGH Administration Baclofen 20 mg 10/27/19 21:00 10/29/19 09:40 Lioresal PO 20 mg BID KALEIGH Administration Carbamazepine 200 mg 10/27/19 21:00 10/29/19 09:40 Tegretol Xr PO 200 mg BID KALEIGH Administration Famotidine 20 mg 10/28/19 09:00 10/29/19 09:40 Pepcid PO 20 mg DAILY KALEIGH Administration Insulin Glargine 10 units/ 0.1 mls @ 0 mls/hr 10/27/19 21:00 10/29/19 09:41 Miscellaneous Medication SC 0.1 mls BID KALEIGH Administration Piperacillin Sod/Tazobactam 100 mls @ 200 mls/hr 10/27/19 22:00 10/29/19 14: 07 Sod 3.375 gm/ Sodium Chloride IVPB 100 mls Q8HR KALEIGH Administration Vancomycin HCl 1.25 gm/ Sodium 250 mls @ 166.667 mls/hr 10/28/19 18:00 06:05 Chloride IVPB 250 mls 0600,1800 KALEIGH Administration Insulin Human Lispro 0 units 10/27/19 14:30 10/29/19 12:30 Humalog SC 8 unit .MODERATE SLIDING SC PRN Administration Moderate Correctional Scale Insulin Human Lispro 0 units 10/27/19 14:30 10/28/19 20:42 Humalog SC 3 unit .BEDTIME SLIDING SC PRN Administration Bedtime Correctional Scale Levofloxacin 500 mg 10/27/19 20:00 10/28/19 20:40 Levaquin PO 500 mg 2000 KALEIGH Administration Metoprolol Tartrate 25 mg 10/28/19 09:00 10/29/19 09:40 Lopressor PO 25 mg BID KALEIGH Administration Multivitamins 1 tab 10/28/19 09:00 10/29/19 09:41 Theragran PO Not Given DAILY [facility] Polyethylene Glycol 17 gm 10/28/19 09:00 10/29/19 09:41 Miralax PO 17 gm DAILY KALEIGH Administration - Exam General Appearance: NAD, awake alert Eye: PERRL, anicteric sclera ENT: normocephalic atraumatic, no oropharyngeal lesions Neck: supple, symmetric, no JVD, no thyromegaly Heart: RRR, no murmur, no gallops, no rubs Respiratory: CTAB, no wheezes, no rales, no ronchi Gastrointestinal: soft, non-tender, non-distended, normal bowel sounds Extremities: no cyanosis, no clubbing, no edema Skin: normal turgor, no lesions Musculoskeletal: normal tone, normal strength Psychiatric: normal affect, normal behavior Hosp A/P (1) DKA (diabetic ketoacidoses) Code(s): E11.10 - TYPE 2 DIABETES MELLITUS WITH KETOACIDOSIS WITHOUT COMA Status: Resolved Qualifiers: Diabetes mellitus type: type 2 Diabetes mellitus complication detail: without coma Qualified Code(s): E11.10 - Type 2 diabetes mellitus with ketoacidosis without coma (2) DM type 2 (diabetes mellitus, type 2) Status: Acute Qualifiers: Diabetes mellitus [facility] insulin use: without ad terminal makeup operator use (3) Sepsis Code(s): A41.9 - SEPSIS, UNSPECIFIED ORGANISM Status: Acute Qualifiers: Sepsis type: sepsis due to unspecified organism (4) 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 Code(s): G35 - MULTIPLE SCLEROSIS; R53.2 - FUNCTIONAL QUADRIPLEGIA Status: Chronic (5) Abnormal blood electrolyte level Code(s): E87.8 - OTH DISORDERS OF ELECTROLYTE AND FLUID BALANCE, NEC Status: Acute (6) Obesity (BMI 30-39.9) Code(s): E66.9 - OBESITY, UNSPECIFIED Status: Chronic - Plan old records reviewed/req, continue antibiotics 10/28/19 continue empiric antibiotics for suspected sepsis, so far culture negative, follow culture transfer to medical floor will repeat labs tomorrow and adjust insulin dose as needed medication reviewed and continue to provide symptomatic care and supportive care 10/29/19 DC IVF replace potassium and magnesium DC vancomycin
[2019-10-29] MEDS: Potassium Chloride 20 MEQ TAB PO SCH (18:56)
[2019-10-30 05:18] LABS: Vancomycin, Trough 8.1 ug/mL
[2019-10-30 05:19] LABS: Anion Gap 9 mmol/L (10-20); BUN (Urea Nitrogen) Less than 4 mg/dL (9.8-20.1); Calc. Creatinine Clearance 115 mL/min (70-130); Calcium 9.2 mg/dL (7.8-10.44); Carbon Dioxide 21 mmol/L (23-31); Chloride 113 mmol/L (98-107); Estimated GFR-MDRD Greater than 90; Glucose 227 mg/dL (83-110); Potassium 3.4 mmol/L (3.5-5.1); Sodium 140 mmol/L (136-145)
[2019-10-30] MEDS: Piperacillin/Tazobactam 3.375 GM in Sodium Chloride 0.9% 100 ML IVPB SCH ×3 (05:34→21:13)
[2019-10-30] MEDS: HumaLOG 300 UNITS/3 ML VIAL SC PRN ×4 (05:36→21:13)
[2019-10-30] MEDS ORDERED: Insulin Glargine 15 UNITS in Pre-Filled Syringe 1 EACH SC SCH ×2 (09:00→21:00)
[2019-10-30] MEDS: Aspirin Chewable 81 MG TAB PO SCH (09:14)
[2019-10-30] MEDS: Metoprolol Tartrate 25 MG TAB PO SCH ×2 (09:15→21:12)
[2019-10-30] MEDS: Famotidine 20 MG TAB PO SCH (09:16)
[2019-10-30] MEDS: Baclofen 10 MG TAB PO SCH ×2 (09:17→21:12)
[2019-10-30] MEDS: Multivit, Therapeutic 1 TAB PO SCH (09:17)
[2019-10-30] MEDS: Potassium Chloride 20 MEQ TAB PO SCH ×2 (09:17→18:02)
[2019-10-30] MEDS: Polyethylene Glycol 3350 17 GM Packet PO SCH (09:18)
--- NOTE | 2019-10-30 09:31 | PDOC.HOSPP ---
- Subjective Encounter Date: 10/30/19 Encounter Time: 08:00 Subjective: Patient seen and examined. No new complaints. No overnight events - Objective Vital Signs & Weight: Vital Signs (12 hours) Temp Pulse Resp BP Pulse Ox 10/30/19 07:19 98.6 F 73 18 150/88 H 97 Weight Weight 229 lb 0.964 oz Most Recent Monitor Data Heart Rate from ECG 85 NIBP 123/81 NIBP BP-Mean 95 Respiration from ECG 25 SpO2 100 I&O: 10/29/19 10/30/19 10/31/19 06:59 06:59 06:59 Intake Total 1790 1440 Output Total 1075 1300 Balance 715 140 Result Diagrams: 10/29/19 05:13 10/30/19 04:49 Additional Labs: Accuchecks 10/30/19 10/29/19 10/29/19 05:07 18:57 15:49 POC Glucose 252 H 293 H 298 H 10/29/19 10:50 POC Glucose 333 H Radiology Reviewed by me: Yes EKG Reviewed by me: Yes Hospitalist ROS - Review of Systems ENT: denies: ear pain, ear discharge, nose pain, nose discharge, nose congestion , mouth pain, mouth swelling, throat pain, throat swelling, other Respiratory: denies: cough, dry, shortness of breath, hemoptysis, SOB with excertion, pleuritic pain, sputum, wheezing, other Cardiovascular: denies: chest pain, palpitations, orthopnea, paroxysmal noc. dyspnea, edema, light headedness, other Gastrointestinal: denies: nausea, vomiting, abdominal pain, diarrhea, constipation, melena, hematochezia, other Genitourinary: denies: dysuria, frequency, incontinence, hematuria, retention, other Musculoskeletal: denies: neck pain, shoulder pain, arm pain, back pain, hand pain, leg pain, foot pain, other - Medication Medications: Active Medications Generic Name Dose Route Start Last Admin Trade Name Freq PRN Reason Stop Dose Admin Aspirin 81 mg 10/28/19 09:00 10/30/19 09:14 Aspirin Chewable PO 81 mg DAILY KALEIGH Administration Baclofen 20 mg 10/27/19 21:00 10/30/19 09:17 Lioresal PO 20 mg BID KALEIGH Administration Carbamazepine 200 mg 10/27/19 21:00 10/30/19 09:15 Tegretol Xr PO 200 mg BID KALEIGH Administration Famotidine 20 mg 10/28/19 09:00 10/30/19 09:16 Pepcid PO 20 mg DAILY KALEIGH Administration Piperacillin Sod/Tazobactam 100 mls @ 200 mls/hr 10/27/19 22:00 10/30/19 05: 34 Sod 3.375 gm/ Sodium Chloride IVPB 100 mls Q8HR KALEIGH Administration Insulin Glargine 15 units/ 0.15 mls @ 0 mls/hr 10/30/19 09:00 10/30/19 09:13 Miscellaneous Medication SC 0.15 mls QAM KALEIGH Administration Insulin Human Lispro 0 units 10/27/19 14:30 10/30/19 05:36 Humalog SC 6 unit .MODERATE SLIDING SC PRN Administration Moderate Correctional Scale Insulin Human Lispro 0 units 10/27/19 14:30 10/29/19 20:22 Humalog SC 3 unit .BEDTIME SLIDING SC PRN Administration Bedtime Correctional Scale Levofloxacin 500 mg 10/27/19 20:00 10/29/19 20:20 Levaquin PO 500 mg 2000 KALEIGH Administration Metoprolol Tartrate 25 mg 10/28/19 09:00 10/30/19 09:15 Lopressor PO 25 mg BID KALEIGH Administration Multivitamins 1 tab 10/28/19 09:00 10/30/19 09:17 Theragran PO 1 tab DAILY KALEIGH Administration Polyethylene Glycol 17 gm 10/28/19 09:00 10/30/19 09:18 Miralax PO Not Given DAILY KALEIGH Potassium Chloride 40 meq 10/29/19 17:00 10/30/19 09:17 K-Dur PO 40 meq BID-WM KALEIGH Administration Sodium Chloride 10 ml 10/29/19 21:00 10/30/19 09:18 Flush - Normal Saline IVF 10 ml Q12HR KALEIGH Administration - Exam General Appearance: NAD, awake alert Eye: PERRL, anicteric sclera ENT: normocephalic atraumatic, no oropharyngeal lesions Neck: supple, symmetric, no JVD, no thyromegaly Heart: RRR, no murmur, no gallops, no rubs Respiratory: CTAB, no wheezes, no rales, no ronchi Gastrointestinal: soft, non-tender, non-distended, normal bowel sounds Extremities: no cyanosis, no clubbing Skin: normal turgor, no lesions Neurological: no focal deficits Musculoskeletal: normal tone, normal strength Psychiatric: normal affect, normal behavior Hosp A/P (1) DKA (diabetic ketoacidoses) Code(s): E11.10 - TYPE 2 DIABETES MELLITUS WITH KETOACIDOSIS WITHOUT COMA Status: Resolved Qualifiers: Diabetes mellitus type: type 2 Diabetes mellitus complication detail: without coma Qualified Code(s): E11.10 - Type 2 diabetes mellitus with ketoacidosis without coma (2) DM type 2 (diabetes mellitus, type 2) Status: Acute Qualifiers: Diabetes mellitus [facility] insulin use: without [facility] use (3) Sepsis Code(s): A41.9 - SEPSIS, UNSPECIFIED ORGANISM Status: Acute Qualifiers: Sepsis type: sepsis due to unspecified organism (4) 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 Code(s): G35 - MULTIPLE SCLEROSIS; R53.2 - FUNCTIONAL QUADRIPLEGIA Status: Chronic (5) Abnormal blood electrolyte level Code(s): E87.8 - OTH DISORDERS OF ELECTROLYTE AND FLUID BALANCE, NEC Status: Acute (6) Obesity (BMI 30-39.9) Code(s): E66.9 - OBESITY, UNSPECIFIED Status: Chronic - Plan old records reviewed/req 10/28/19 continue empiric antibiotics for suspected sepsis, so far culture negative, follow culture transfer to medical floor will repeat labs tomorrow and adjust insulin dose as needed medication reviewed and continue to provide symptomatic care and supportive care 10/29/19 DC IVF replace potassium and magnesium DC vancomycin 10/30/19 increase lantus today so far culture negative will consider discharge to custodial in 24 hours medication reviewed, continue to provide symptomatic care and supportive care
[2019-10-31] MEDS: Piperacillin/Tazobactam 3.375 GM in Sodium Chloride 0.9% 100 ML IVPB SCH (05:11)
[2019-10-31 05:53] LABS: Anion Gap 13 mmol/L (10-20); Calc. Creatinine Clearance 112 mL/min (70-130); Calcium 9.1 mg/dL (7.8-10.44); Carbon Dioxide 20 mmol/L (23-31); Chloride 109 mmol/L (98-107); Estimated GFR-MDRD Greater than 90; Glucose 180 mg/dL (83-110); Sodium 138 mmol/L (136-145)
[2019-10-31 06:02] LABS: BUN (Urea Nitrogen) 5 mg/dL (9.8-20.1)
[2019-10-31] MEDS: Insulin Glargine 25 UNITS in Pre-Filled Syringe 1 EACH SC SCH (08:41)
[2019-10-31] MEDS: Multivit, Therapeutic 1 TAB PO SCH (08:41)
[2019-10-31] MEDS: Aspirin Chewable 81 MG TAB PO SCH (08:41)
[2019-10-31] MEDS: Famotidine 20 MG TAB PO SCH (08:41)
[2019-10-31] MEDS: Baclofen 10 MG TAB PO SCH ×2 (08:41→21:08)
[2019-10-31] MEDS: Polyethylene Glycol 3350 17 GM Packet PO SCH (08:42)
[2019-10-31] MEDS: Metoprolol Tartrate 25 MG TAB PO SCH ×2 (08:42→21:08)
[2019-10-31] MEDS: Potassium Chloride 20 MEQ TAB PO SCH ×2 (08:42→16:32)
--- NOTE | 2019-10-31 12:02 | PDOC.HOSPP ---
- Subjective Encounter Date: 10/31/19 Encounter Time: 08:20 Subjective: Patient seen and examined. No new complaints. No overnight events - Objective Vital Signs & Weight: Vital Signs (12 hours) Temp Pulse Resp BP Pulse Ox 10/31/19 08:00 97 10/31/19 06:49 98.3 F 72 17 126/75 97 Weight Weight 229 lb 0.964 oz Most Recent Monitor Data Heart Rate from ECG 85 NIBP 123/81 NIBP BP-Mean 95 Respiration from ECG 25 SpO2 100 I&O: 10/30/19 10/31/19 11/01/19 06:59 06:59 06:59 Intake Total 1440 980 Output Total 1300 1750 Balance 140 -770 Result Diagrams: 10/29/19 05:13 10/31/19 05:23 Additional Labs: Accuchecks 10/31/19 10/30/19 10/30/19 04:36 19:00 16:10 POC Glucose 205 H 237 H 262 H Hospitalist ROS - Review of Systems ENT: denies: ear pain, ear discharge, nose pain, nose discharge, nose congestion , mouth pain, mouth swelling, throat pain, throat swelling, other Respiratory: denies: cough, dry, shortness of breath, hemoptysis, SOB with excertion, pleuritic pain, sputum, wheezing, other Cardiovascular: denies: chest pain, palpitations, orthopnea, paroxysmal noc. dyspnea, edema, light headedness, other Gastrointestinal: denies: nausea, vomiting, abdominal pain, diarrhea, constipation, melena, hematochezia, other Genitourinary: denies: dysuria, frequency, incontinence, hematuria, retention, other Musculoskeletal: denies: neck pain, shoulder pain, arm pain, back pain, hand pain, leg pain, foot pain, other - Medication Medications: Active Medications Generic Name Dose Route Start Last Admin Trade Name Freq PRN Reason Stop Dose Admin Aspirin 81 mg 10/28/19 09:00 10/31/19 08:41 Aspirin Chewable PO 81 mg DAILY KALEIGH Administration Baclofen 20 mg 10/27/19 21:00 10/31/19 08:41 Lioresal PO 20 mg BID KALEIGH Administration Carbamazepine 200 mg 10/27/19 21:00 10/31/19 08:41 Tegretol Xr PO 200 mg BID KALEIGH Administration Famotidine 20 mg 10/28/19 09:00 10/31/19 08:41 Pepcid PO 20 mg DAILY KALEIGH Administration Piperacillin Sod/Tazobactam 100 mls @ 200 mls/hr 10/27/19 22:00 10/31/19 05: 11 Sod 3.375 gm/ Sodium Chloride IVPB 100 mls Q8HR KALEIGH Administration Insulin Glargine 25 units/ 0.25 mls @ 0 mls/hr 10/31/19 09:00 10/31/19 08:41 Miscellaneous Medication SC 0.25 mls QAM KALEIGH Administration Insulin Human Lispro 0 units 10/27/19 14:30 10/30/19 18:03 Humalog SC 6 unit .MODERATE SLIDING SC PRN Administration Moderate Correctional Scale Insulin Human Lispro 0 units 10/27/19 14:30 10/30/19 21:13 Humalog SC 2 unit .BEDTIME SLIDING SC PRN Administration Bedtime Correctional Scale Levofloxacin 500 mg 10/27/19 20:00 10/30/19 21:12 Levaquin PO 500 mg 2000 KALEIGH Administration Metoprolol Tartrate 25 mg 10/28/19 09:00 10/31/19 08:42 Lopressor PO 25 mg BID KALEIGH Administration Multivitamins 1 tab 10/28/19 09:00 10/31/19 08:41 Theragran PO 1 tab DAILY KALEIGH Administration Polyethylene Glycol 17 gm 10/28/19 09:00 10/31/19 08:42 Miralax PO Not Given DAILY KALEIGH Potassium Chloride 40 meq 10/29/19 17:00 10/31/19 08:42 K-Dur PO 40 meq BID-WM KALEIGH Administration Sodium Chloride 10 ml 10/29/19 21:00 10/31/19 08:42 Flush - Normal Saline IVF 10 ml Q12HR KALEIGH Administration - Exam General Appearance: NAD, awake alert Eye: PERRL, anicteric sclera ENT: normocephalic atraumatic, no oropharyngeal lesions Neck: supple, symmetric, no JVD Heart: RRR, no murmur, no gallops, no rubs Respiratory: CTAB, no wheezes, no rales, no ronchi Gastrointestinal: soft, non-tender, non-distended, normal bowel sounds Extremities: no cyanosis, no clubbing Skin: normal turgor, no lesions Musculoskeletal: normal tone, normal strength Psychiatric: normal affect, normal behavior Hosp A/P (1) DKA (diabetic ketoacidoses) Code(s): E11.10 - TYPE 2 DIABETES MELLITUS WITH KETOACIDOSIS WITHOUT COMA Status: Resolved Qualifiers: Diabetes mellitus type: type 2 Diabetes mellitus complication detail: without coma Qualified Code(s): E11.10 - Type 2 diabetes mellitus with ketoacidosis without coma (2) DM type 2 (diabetes mellitus, type 2) Status: Acute Qualifiers: Diabetes mellitus press tender long goods insulin use: without press tender long goods use (3) Sepsis Code(s): A41.9 - SEPSIS, UNSPECIFIED ORGANISM Status: Acute Qualifiers: Sepsis type: sepsis due to unspecified organism (4) 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 Code(s): G35 - MULTIPLE SCLEROSIS; R53.2 - FUNCTIONAL QUADRIPLEGIA Status: Chronic (5) Abnormal blood electrolyte level Code(s): E87.8 - OTH DISORDERS OF ELECTROLYTE AND FLUID BALANCE, NEC Status: Acute (6) Obesity (BMI 30-39.9) Code(s): E66.9 - OBESITY, UNSPECIFIED Status: Chronic - Plan old records reviewed/req, plan discussed w/ family, continue antibiotics 10/28/19 continue empiric antibiotics for suspected sepsis, so far culture negative, follow culture transfer to medical floor will repeat labs tomorrow and adjust insulin dose as needed medication reviewed and continue to provide symptomatic care and supportive care 10/29/19 DC IVF replace potassium and magnesium DC vancomycin 10/30/19 increase lantus today so far culture negative will consider discharge to care home in 24 hours medication reviewed, continue to provide symptomatic care and supportive care 10/31/19 increase lantus today discussed with son continue current antibiotics, continue levaquin and dc zosyn today pt's son wanted to keep her until better blood sugar control may not need antibiotic on discharge
[2019-10-31] MEDS: HumaLOG 300 UNITS/3 ML VIAL SC PRN ×2 (12:40→16:34)
--- NOTE | 2019-10-31 15:33 | EKG ---
Test Reason : SEPSIS Blood Pressure : / mmHG Vent. Rate : 139 BPM Atrial Rate : 139 BPM P-R Int : 116 ms QRS Dur : 070 ms QT Int : 284 ms P-R-T Axes : 015 -03 025 degrees QTc Int : 432 ms Sinus tachycardia Left ventricular hypertrophy with repolarization abnormality Inferior infarct , age undetermined Anterior infarct , age undetermined Abnormal ECG Confirmed by CANDY AVILA, DARIANA ([id number]), business editor ADAN AGUILAR ([id number]) on 10/31/2019 3:32:51 PM Referred By: Confirmed By:DARIANA GUPTA MD
[2019-10-31] MEDS ORDERED: Insulin Glargine 20 UNITS in Pre-Filled Syringe 1 EACH SC SCH (21:00)
[2019-11-01 04:23] LABS: Anion Gap 12 mmol/L (10-20); BUN (Urea Nitrogen) 4 mg/dL (9.8-20.1); Calc. Creatinine Clearance 117 mL/min (70-130); Calcium 9.6 mg/dL (7.8-10.44); Carbon Dioxide 24 mmol/L (23-31); Chloride 107 mmol/L (98-107); Estimated GFR-MDRD Greater than 90; Glucose 148 mg/dL (83-110); Potassium 3.7 mmol/L (3.5-5.1); Sodium 139 mmol/L (136-145)
[2019-11-01 06:58] VITALS: BP 130/75; TEMP 98
[2019-11-01] MEDS: Baclofen 10 MG TAB PO SCH (08:14)
[2019-11-01] MEDS: Potassium Chloride 20 MEQ TAB PO SCH (08:14)
[2019-11-01] MEDS: Polyethylene Glycol 3350 17 GM Packet PO SCH (08:15)
[2019-11-01] MEDS: Aspirin Chewable 81 MG TAB PO SCH (08:15)
[2019-11-01] MEDS: Insulin Glargine 25 UNITS in Pre-Filled Syringe 1 EACH SC SCH (08:15)
[2019-11-01] MEDS: Metoprolol Tartrate 25 MG TAB PO SCH (08:15)
[2019-11-01] MEDS: Multivit, Therapeutic 1 TAB PO SCH (08:15)
[2019-11-01] MEDS: Famotidine 20 MG TAB PO SCH (08:15)
[2019-11-01] MEDS: HumaLOG 300 UNITS/3 ML VIAL SC PRN (11:45)
--- NOTE | 2019-11-01 12:27 | PDOC.HOSPP ---
- Subjective Encounter Date: 11/01/19 Encounter Time: 07:20 Subjective: Patient seen and examined. No new complaints. No overnight events - Objective Vital Signs & Weight: Vital Signs (12 hours) Temp Pulse Resp BP Pulse Ox 11/01/19 08:00 97 11/01/19 06:58 98 F 77 17 130/75 97 Weight Weight 229 lb 0.964 oz Most Recent Monitor Data Heart Rate from ECG 85 NIBP 123/81 NIBP BP-Mean 95 Respiration from ECG 25 SpO2 100 I&O: 10/31/19 11/01/19 11/02/19 06:59 06:59 06:59 Intake Total 980 Output Total 1750 1200 Balance -770 -1200 Result Diagrams: 10/29/19 05:13 11/01/19 03:35 Additional Labs: Accuchecks 10/31/19 10/31/19 19:19 15:31 POC Glucose 161 H 199 H Hospitalist ROS - Review of Systems ENT: denies: ear pain, ear discharge, nose pain, nose discharge, nose congestion , mouth pain, mouth swelling, throat pain, throat swelling, other Respiratory: denies: cough, dry, shortness of breath, hemoptysis, SOB with excertion, pleuritic pain, sputum, wheezing, other Cardiovascular: denies: chest pain, palpitations, orthopnea, paroxysmal noc. dyspnea, edema, light headedness, other Gastrointestinal: denies: nausea, vomiting, abdominal pain, diarrhea, constipation, melena, hematochezia, other Genitourinary: denies: dysuria, frequency, incontinence, hematuria, retention, other Musculoskeletal: denies: neck pain, shoulder pain, arm pain, back pain, hand pain, leg pain, foot pain, other - Medication Medications: Active Medications Generic Name Dose Route Start Last Admin Trade Name Freq PRN Reason Stop Dose Admin Aspirin 81 mg 10/28/19 09:00 11/01/19 08:15 Aspirin Chewable PO 81 mg DAILY KALEIGH Administration Baclofen 20 mg 10/27/19 21:00 11/01/19 08:14 Lioresal PO 20 mg BID KALEIGH Administration Carbamazepine 200 mg 10/27/19 21:00 11/01/19 08:15 Tegretol Xr PO 200 mg BID KALEIGH Administration Famotidine 20 mg 10/28/19 09:00 11/01/19 08:15 Pepcid PO 20 mg DAILY KALEIGH Administration Insulin Glargine 25 units/ 0.25 mls @ 0 mls/hr 10/31/19 09:00 11/01/19 08:15 Miscellaneous Medication SC 0.25 mls QAM KALEIGH Administration Insulin Glargine 20 units/ 0.2 mls @ 0 mls/hr 10/31/19 21:00 10/31/19 21:09 Miscellaneous Medication SC 0.2 mls HS KALEIGH Administration Insulin Human Lispro 0 units 10/27/19 14:30 11/01/19 11:45 Humalog SC 4 unit .MODERATE SLIDING SC PRN Administration Moderate Correctional Scale Insulin Human Lispro 0 units 10/27/19 14:30 10/30/19 21:13 Humalog SC 2 unit .BEDTIME SLIDING SC PRN Administration Bedtime Correctional Scale Levofloxacin 500 mg 10/27/19 20:00 10/31/19 21:08 Levaquin PO 500 mg 2000 KALEIGH Administration Metoprolol Tartrate 25 mg 10/28/19 09:00 11/01/19 08:15 Lopressor PO 25 mg BID KALEIGH Administration Multivitamins 1 tab 10/28/19 09:00 11/01/19 08:15 Theragran PO 1 tab DAILY KALEIGH Administration Polyethylene Glycol 17 gm 10/28/19 09:00 11/01/19 08:15 Miralax PO Not Given DAILY KALEIGH Potassium Chloride 40 meq 10/29/19 17:00 11/01/19 08:14 K-Dur PO 40 meq BID-WM KALEIGH Administration Sodium Chloride 10 ml 10/29/19 21:00 11/01/19 08:15 Flush - Normal Saline IVF Not Given Q12HR KALEIGH - Exam General Appearance: NAD, awake alert Eye: PERRL, anicteric sclera ENT: normocephalic atraumatic, no oropharyngeal lesions Neck: supple, symmetric, no JVD, no thyromegaly Heart: RRR, no murmur, no gallops, no rubs Respiratory: CTAB, no wheezes, no rales, no ronchi Gastrointestinal: soft, non-tender, non-distended, normal bowel sounds Extremities: no cyanosis, no clubbing, no edema Skin: normal turgor, no lesions Musculoskeletal: normal tone, normal strength Psychiatric: normal affect, normal behavior Hosp A/P (1) DKA (diabetic ketoacidoses) Code(s): E11.10 - TYPE 2 DIABETES MELLITUS WITH KETOACIDOSIS WITHOUT COMA Status: Resolved Qualifiers: Diabetes mellitus type: type 2 Diabetes mellitus complication detail: without coma Qualified Code(s): E11.10 - Type 2 diabetes mellitus with ketoacidosis without coma (2) DM type 2 (diabetes mellitus, type 2) Status: Acute Qualifiers: Diabetes mellitus middle or intermediate school principal insulin use: without middle or intermediate school principal use (3) Sepsis Code(s): A41.9 - SEPSIS, UNSPECIFIED ORGANISM Status: Acute Qualifiers: Sepsis type: sepsis due to unspecified organism (4) 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 Code(s): G35 - MULTIPLE SCLEROSIS; R53.2 - FUNCTIONAL QUADRIPLEGIA Status: Chronic (5) Abnormal blood electrolyte level Code(s): E87.8 - OTH DISORDERS OF ELECTROLYTE AND FLUID BALANCE, NEC Status: Acute (6) Obesity (BMI 30-39.9) Code(s): E66.9 - OBESITY, UNSPECIFIED Status: Chronic - Plan old records reviewed/req 10/28/19 continue empiric antibiotics for suspected sepsis, so far culture negative, follow culture transfer to medical floor will repeat labs tomorrow and adjust insulin dose as needed medication reviewed and continue to provide symptomatic care and supportive care 10/29/19 DC IVF replace potassium and magnesium DC vancomycin 10/30/19 increase lantus today so far culture negative will consider discharge to correction in 24 hours medication reviewed, continue to provide symptomatic care and supportive care 10/31/19 increase lantus today discussed with son continue current antibiotics, continue levaquin and dc zosyn today pt's son wanted to keep her until better blood sugar control may not need antibiotic on discharge 11/01/19 stable for discharge see discharge beatriz
--- NOTE | 2019-11-01 13:48 | DIS ---
DATE OF ADMISSION: 10/26/2019 DATE OF DISCHARGE: 11/01/2019 PRIMARY CARE PHYSICIAN: [facility] Call admission. DISCHARGE DISPOSITION: [facility]. PRIMARY DISCHARGE DIAGNOSES: 1. New onset diabetes type 2 with diabetic ketoacidosis, resolved. 2. Abnormal blood electrolytes, corrected. 3. Sepsis ruled out and resolved. DISCHARGE SECONDARY DIAGNOSES: Multiple sclerosis, physical deconditioning, functional quadriplegia, morbid obesity with body mass index 35. PRIMARY PROCEDURE/OPERATION: None. RADIOLOGICAL INVESTIGATION: Chest x-ray was unremarkable. SIGNIFICANT LABORATORY DATA: WBC 6.0, hemoglobin 12.9, platelet 286. Sodium 139, potassium 3.7, BUN 4, creatinine 0.66, calcium 9.6. Urinalysis suggestive of UTI. Blood culture and urine culture negative. Influenza negative. DISCHARGE MEDICATIONS: 1. Clonidine 0.1 mg q.6 hourly p.r.n. 2. Baclofen 20 mg b.i.d. 3. Lovenox 40 mg subcu daily. 4. Pepcid 20 mg p.o. daily. 5. Interferon 30 mcg IM every 7 days. 6. Multivitamin one tablet p.o. daily. 7. MiraLAX 17 g daily. 8. Potassium chloride 20 mEq p.o. daily. 9. Aspirin 81 mg daily. 10. Humalog insulin as per sliding scale t.i.d. 11. Lantus insulin 25 units in morning and 20 units at bedtime. 12. Metoprolol 25 mg p.o. twice daily for 30 days. CONTRAINDICATION: None. CODE STATUS: Full code. INPATIENT SUPERVISOR [employer]: Dr. Stout was following while in hospital. TEST RESULTS PENDING ON DISCHARGE: None. ALLERGIES: NO KNOWN DRUG ALLERGIES. DISCHARGE PLAN: Posthospital, the patient will follow up with primary care physician in 1 week. HOSPITAL COURSE: A 78-year-old female with above-mentioned medical problem, who was admitted by Dr. Domingo. Please see his H and P for further details. The patient was admitted with a new onset diabetes ketoacidosis. The patient never had diagnosis of diabetes in the past. This patient was admitted to the hospital, and she was treated with DKA protocol treatment and after resolution of DKA, the patient was transferred to medical floor. Pulmonary group was following while in hospital. Initially, patient was meeting sepsis criteria and that is why the patient was started on empiric antibiotic therapy, but as the patient did not have any further evidence of UTI infection and all cultures remained negative, we have ruled out sepsis and UTI or any other infectious etiology. The patient did not require any antibiotic therapy on discharge. While in the hospital, we adjusted blood pressure medication as above, and on discharge, the patient will continue Lantus as well as Humalog insulin as per sliding scale. Electrolyte was replaced while in the hospital, and the patient will follow up with primary care physician at senior living. The patient will continue all her previous medication. The patient is seen and examined at bedside today please see my progress note from today for further details. Job ID: [id number]
== END 2019-11-01 13:42 | DRG 637 ==
LOC: ERS 16:08 → CCU 21:27 → IMCU/EMU 10-28 08:05 → T4-A 10-28 14:42
PROVIDERS: ADMIT Family Medicine; ATTEND Family Medicine
DX: E11.10 Type 2 diabetes mellitus with ketoacidosis without coma (principal); R53.2 Functional quadriplegia; G93.41 Metabolic encephalopathy; N17.9 Acute kidney failure, unspecified; G35 Multiple sclerosis; E83.52 Hypercalcemia; I10 Essential (primary) hypertension; I89.0 Lymphedema, not elsewhere classified; F03.90 Unspecified dementia, unspecified severity, without behavioral disturbance, psychotic disturbance, mood disturbance, and anxiety; E66.01 Morbid (severe) obesity due to excess calories; Z87.440 Personal history of urinary (tract) infections; Z90.49 Acquired absence of other specified parts of digestive tract; Z90.710 Acquired absence of both cervix and uterus; Z98.51 Tubal ligation status; Z79.82 Long term (current) use of aspirin; Z79.01 Long term (current) use of anticoagulants; Z68.35 Body mass index [BMI] 35.0-35.9, adult; Z79.899 Other long term (current) drug therapy; Z74.01 Bed confinement status
CPT/HCPCS: 36415; 36416; 51701; 71045; 80048; 80053; 80202; 81003; 81015; 82010; 82550; 82805; 83036; 83605; 83690; 83735; 83880; 83930; 84100; 84443; 84484; 85025; 87040; 87086; 87804; 93005; 96361; 96365; 96366; 96367; 99292; J1815; J1956; J2543; J3370; J3475; J3480; J3490; J7050; S0028

== ENCOUNTER 2023-12-18 09:13 | Inpatient (IN) | payer MEDICARE, MEDICAID ==
[2023-12-18 09:56] LABS: #Neutrophils 8.5 thou/uL (1.40-6.50); %Basophils 0.4 % (0.0-1.0); %Eosinophils 0.1 % (0.0-10.0); %Lymphocytes 12.4 % (21.0-51.0); %Monocytes 8.9 % (0.0-10.0); %Neutrophils 77.7 % (42.0-75.0); Hematocrit 47.9 % (36.0-47.0); Hemoglobin 16.4 g/dL (12.0-16.0); Mean Corpuscular HGB CONC 34.2 g/dL (32.0-36.0); Mean Corpuscular Hemoglobin 29.8 pg (27.0-31.0); Mean Corpuscular Volume 87.1 fl (78.0-98.0); Mean Platelet Volume 9.3 fL (7.4-10.4); Platelet Count 277 10x3/uL (130-400); RBC Distribution Width 12.7 % (11.5-14.5)
[2023-12-18] MEDS ORDERED: Cefepime 2 GM VIAL ONE (10:02)
[2023-12-18] MEDS ORDERED: Sodium Chloride 0.9% 100 ML ONE (10:04)
[2023-12-18 10:09] LABS: INR-International Normal Ratio 1.2; PTT 36.3 sec (22.9-36.1); Prothrombin Time 14.9 sec (12.0-14.7)
[2023-12-18 10:16] LABS: Troponin I 0.017 ng/mL (< 0.028)
[2023-12-18 10:47] LABS: ALT (SGPT) 27 U/L (8-55); AST (SGOT) 51 U/L (5-34); Alkaline Phosphatase 76 U/L (40-110); Anion Gap 15 mmol/L (10-20); BUN (Urea Nitrogen) 14 mg/dL (9.8-20.1); Bilirubin, Total 0.9 mg/dL (0.2-1.2); Calc. Creatinine Clearance 0 mL/min (70-130); Calcium 10.6 mg/dL (7.8-10.44); Carbon Dioxide 22 mmol/L (23-31); Chloride 103 mmol/L (98-107); Estimated GFR 74; Globulin 4.7 g/dL (2.4-3.5); Glucose 145 mg/dL (83-110); Potassium 4.2 mmol/L (3.5-5.1); Protein, Total 8.7 g/dL (5.8-8.1); Sodium 136 mmol/L (136-145)
[2023-12-18] MEDS ORDERED: Iopamidol-370 76% 500 ML MDV (1 ML CHARGE) ONE (11:09)
[2023-12-18] MEDS ORDERED: Ketorolac Tromethamine 30 MG (1 mL) VIAL ONE (11:48)
[2023-12-18] MEDS ORDERED: Vancomycin 1 GM/200 ML (FROZEN) BAG ONE (11:48)
[2023-12-18 11:49] LABS: Influenza A by NAA Not Detected (NotDetected); Influenza B by NAA Not Detected (NotDetected); SARS-CoV-2 NAA Rapid Test DETECTED (NotDetected)
[2023-12-18 13:13] LABS: Lactic Acid 1.7 mmol/L (0.5-2.2)
[2023-12-18 13:23] LABS: Troponin I 0.014 ng/mL (< 0.028)
[2023-12-18 13:34] LABS: Bilirubin Negative (Negative); Blood, Urine Moderate (Negative); Glucose, Urine (Dipstick) Negative (Negative); Ketone, Urine Negative (Negative); Leukocyte Moderate (Negative); Nitrite Positive (Negative); Protein, Urine (Dipstick) 100 mg/dL (Neg-Trace); Urobilinogen 0.2 mg/dL (Less than 2)
[2023-12-18 13:47] LABS: Clarity Hazy (Clear)
[2023-12-18 13:51] LABS: Bacteria/HPF 4+ HPF (None Seen); CAUTI Indications for Culture Fever or rigors; WBC/HPF Greater Than 50 HPF (0-3)
[2023-12-18 13:53] LABS: Urine Culture Reflex Yes Yes
[2023-12-18] MEDS ORDERED: Dextrose 5% in Water 1,000 ML IV PRN (14:46)
[2023-12-18] MEDS ORDERED: Bisacodyl 10 MG SUPP PR PRN (14:46)
[2023-12-18] MEDS ORDERED: Acetaminophen 325 MG TAB PO PRN ×2 (14:46)
[2023-12-18] MEDS ORDERED: Albuterol 200 PUFF (6.7GM INHALER) INH PRN (14:46)
[2023-12-18] MEDS ORDERED: Dextrose 50% Abboject 50 ML SYRINGE SLOW IVP PRN (14:46)
[2023-12-18] MEDS ORDERED: Senokot S 8.6-50 MG TAB PO PRN (14:46)
[2023-12-18] MEDS ORDERED: Ondansetron PF 4 MG/2 ML Vial IVP PRN (14:46)
[2023-12-18] MEDS ORDERED: Acetaminophen 650 MG Suppository PR PRN ×2 (14:46)
[2023-12-18] MEDS ORDERED: Glucagon 1 MG/ML KIT IM PRN (14:46)
[2023-12-18] MEDS ORDERED: Ondansetron ODT 4 MG TAB PO PRN (14:46)
[2023-12-18] MEDS ORDERED: HumaLOG 300 UNITS/3 ML VIAL SC PRN (14:46)
[2023-12-18] MEDS ORDERED: Lactulose 20 GM (30 mL) UDCUP PO PRN (14:54)
[2023-12-18] MEDS ORDERED: Electrolyte Replacement Protocol 1 EACH FS SCH (15:00)
[2023-12-18 15:50] VITALS: BMI 37.5
[2023-12-18] MEDS: Sodium Chloride 0.9% 1,000 ML IV SCH (16:04)
[2023-12-18] MEDS: Dexamethasone 10 MG/ML VIAL SLOW IVP SCH (16:05)
[2023-12-18 16:17] LABS: Troponin I Less than 0.010 ng/mL (< 0.028)
[2023-12-18] MEDS: Vancomycin (BATCH) 1.5 GM in Premix 1 BAG IVPB SCH (17:15)
[2023-12-18] MEDS: Cefepime 2 GM in Sodium Chloride 0.9% 100 ML IVPB SCH (18:33)
[2023-12-18] MEDS ORDERED: Vancomycin 1 GM in Sodium Chloride 0.9% 250 ML 300 ML IVPB SCH (21:00)
[2023-12-18] MEDS: Famotidine/PF 20 mg/2ml Vial SLOW IVP SCH (21:16)
[2023-12-18] MEDS: Baclofen 10 MG TAB PO SCH (21:16)
[2023-12-18 22:49] LABS: Magnesium 1.7 mg/dL (1.6-2.6)
[2023-12-18] MEDS: Magnesium 2 GM/50 ML(in water) 2 GM in Premix 1 BAG IVPB SCH (23:17)
[2023-12-19] MEDS: Vancomycin 1 GM in Premix 1 BAG IVPB SCH (04:05)
[2023-12-19 04:27] LABS: #Monocytes 0.5 thou/uL (0.11-0.59); #Neutrophils 7.7 thou/uL (1.40-6.50); %Basophils 0.2 % (0.0-1.0); %Lymphocytes 10.6 % (21.0-51.0); %Monocytes 5.8 % (0.0-10.0); %Neutrophils 83.1 % (42.0-75.0); Hemoglobin 14.7 g/dL (12.0-16.0); Mean Corpuscular HGB CONC 32.7 g/dL (32.0-36.0); Mean Corpuscular Hemoglobin 29.5 pg (27.0-31.0); Mean Platelet Volume 9.2 fL (7.4-10.4); Platelet Count 235 10x3/uL (130-400); Red Blood Cell (RBC) Count 4.98 mill/uL (4.20-5.40); White Blood Cell (WBC) Count 9.3 10x3/uL (4.8-10.8)
[2023-12-19 04:40] LABS: Mean Corpuscular Volume 90.4 fl (78.0-98.0)
[2023-12-19 04:44] LABS: Phosphorus 2.3 mg/dL (2.3-4.7)
[2023-12-19 04:51] LABS: ALT (SGPT) 28 U/L (8-55); AST (SGOT) 54 U/L (5-34); Albumin 3.6 g/dL (3.4-4.8); Alkaline Phosphatase 60 U/L (40-110); Anion Gap 17 mmol/L (10-20); BUN (Urea Nitrogen) 16 mg/dL (9.8-20.1); Bilirubin, Total 0.5 mg/dL (0.2-1.2); Calc. Creatinine Clearance 93 mL/min (70-130); Calcium 9.8 mg/dL (7.8-10.44); Carbon Dioxide 16 mmol/L (23-31); Chloride 108 mmol/L (98-107); Estimated GFR 74; Globulin 4.4 g/dL (2.4-3.5); Glucose 198 mg/dL (83-110); Magnesium 2.1 mg/dL (1.6-2.6); Potassium 4.5 mmol/L (3.5-5.1); Sodium 136 mmol/L (136-145)
[2023-12-19] MEDS: HumaLOG 300 UNITS/3 ML VIAL SC PRN (05:53)
[2023-12-19] MEDS: Ascorbic Acid 500 mg Chewable Tablet PO SCH (09:20)
[2023-12-19] MEDS: Zinc Sulfate 220 MG CAP PO SCH (09:21)
[2023-12-19] MEDS: Sertraline 25 MG TAB PO SCH (09:21)
[2023-12-19] MEDS: Cholecalciferol (Vitamin D3) 400 UNITS TAB PO SCH (09:21)
[2023-12-19] MEDS: Enoxaparin 40 MG (0.4 mL) SYRINGE SC SCH (09:21)
[2023-12-19] MEDS: Aspirin Chewable 81 MG TAB PO SCH (09:22)
[2023-12-19] MEDS: Insulin Glargine 30 UNITS/0.3 ML VIAL SC SCH (20:53)
[2023-12-20 04:58] LABS: #Monocytes 0.8 thou/uL (0.11-0.59); #Neutrophils 5.4 thou/uL (1.40-6.50); %Basophils 0.1 % (0.0-1.0); %Lymphocytes 17.8 % (21.0-51.0); %Monocytes 10.4 % (0.0-10.0); %Neutrophils 71.4 % (42.0-75.0); Hematocrit 41.5 % (36.0-47.0); Hemoglobin 13.8 g/dL (12.0-16.0); Mean Corpuscular HGB CONC 33.3 g/dL (32.0-36.0); Mean Corpuscular Hemoglobin 30.1 pg (27.0-31.0); Mean Corpuscular Volume 90.6 fl (78.0-98.0); Mean Platelet Volume 9.7 fL (7.4-10.4); Platelet Count 247 10x3/uL (130-400); RBC Distribution Width 13.3 % (11.5-14.5); Red Blood Cell (RBC) Count 4.58 mill/uL (4.20-5.40); White Blood Cell (WBC) Count 7.5 10x3/uL (4.8-10.8)
[2023-12-20 05:32] LABS: Anion Gap 16 mmol/L (10-20); BUN (Urea Nitrogen) 21 mg/dL (9.8-20.1); Calc. Creatinine Clearance 80 mL/min (70-130); Calcium 9.9 mg/dL (7.8-10.44); Carbon Dioxide 17 mmol/L (23-31); Chloride 107 mmol/L (98-107); Estimated GFR 61; Glucose 357 mg/dL (83-110); Potassium 4.3 mmol/L (3.5-5.1); Sodium 136 mmol/L (136-145)
[2023-12-20 05:42] LABS: Vancomycin, Trough 38.8 ug/mL
[2023-12-20] MEDS: Magnesium 2 GM/50 ML(in water) 2 GM in Premix 1 BAG IVPB SCH (09:52)
[2023-12-20] MEDS: Multivit, Therapeutic 1 TAB PO SCH (09:53)
[2023-12-20] MEDS: Famotidine 20 MG TAB PO SCH (09:53)
[2023-12-20] MEDS: Allopurinol 100 MG TAB PO SCH (09:53)
[2023-12-20] MEDS: Losartan 25 MG TAB PO SCH (09:54)
[2023-12-20] MEDS ORDERED: Iopamidol 370 76% 100 ML VIAL ONE (13:06)
[2023-12-20] MEDS: Azithromycin 250 MG TAB PO SCH (17:06)
[2023-12-20] MEDS: HumaLOG 300 UNITS/3 ML VIAL SC PRN (17:06)
[2023-12-21] MEDS: cefTRIAXone\\ROCEPHIN 1 GM in Sodium Chloride 0.9% 100 ML IVPB SCH (01:12)
[2023-12-21] MEDS ORDERED: Magnevist 469MG/ML 20 ML VIAL ONE (13:41)
[2023-12-22 06:08] LABS: Hematocrit 41.8 % (36.0-47.0); Hemoglobin 14.1 g/dL (12.0-16.0); Mean Corpuscular HGB CONC 33.7 g/dL (32.0-36.0); Mean Corpuscular Hemoglobin 30.1 pg (27.0-31.0); Mean Corpuscular Volume 89.1 fl (78.0-98.0); Mean Platelet Volume 9.5 fL (7.4-10.4); Platelet Count 295 10x3/uL (130-400); Red Blood Cell (RBC) Count 4.69 mill/uL (4.20-5.40); White Blood Cell (WBC) Count 6.4 10x3/uL (4.8-10.8)
[2023-12-22 06:39] LABS: ALT (SGPT) 28 U/L (8-55); AST (SGOT) 33 U/L (5-34); Albumin 3.7 g/dL (3.4-4.8); Alkaline Phosphatase 61 U/L (40-110); Anion Gap 14 mmol/L (10-20); BUN (Urea Nitrogen) 17 mg/dL (9.8-20.1); Bilirubin, Total 0.4 mg/dL (0.2-1.2); Calc. Creatinine Clearance 99 mL/min (70-130); Calcium 9.9 mg/dL (7.8-10.44); Carbon Dioxide 21 mmol/L (23-31); Chloride 106 mmol/L (98-107); Estimated GFR 79; Globulin 4.1 g/dL (2.4-3.5); Glucose 240 mg/dL (83-110); Potassium 4.1 mmol/L (3.5-5.1); Protein, Total 7.8 g/dL (5.8-8.1); Sodium 137 mmol/L (136-145)
[2023-12-22] MEDS: FLU VACC QS2023(65UP)/MF59C/PF 60 MCG/0.5 ML SYRINGE IM ONE (07:22)
[2023-12-22] MEDS: Benzonatate 100 MG CAP PO PRN (08:34)
[2023-12-23 12:51] VITALS: BP 141/75; TEMP 97.7
== END 2023-12-23 12:26 | DRG 871 ==
LOC: ERS 09:13 → 2NO 12:12 → T4-A 12-21 14:06
PROVIDERS: ADMIT Internal Medicine; ATTEND Internal Medicine
PROC: 3E0333Z Introduction of Anti-inflammatory into Peripheral Vein, Percutaneous Approach (ICD-10-PCS; principal; 2023-12-18)
DX: A41.89 Other specified sepsis (principal); J12.82 Pneumonia due to coronavirus disease 2019; J96.01 Acute respiratory failure with hypoxia; U07.1 COVID-19; K86.2 Cyst of pancreas; I10 Essential (primary) hypertension; E11.9 Type 2 diabetes mellitus without complications; M10.9 Gout, unspecified; K59.00 Constipation, unspecified; N28.89 Other specified disorders of kidney and ureter; R10.9 Unspecified abdominal pain; G35 Multiple sclerosis; Z79.82 Long term (current) use of aspirin; Z79.4 Long term (current) use of insulin; Z79.84 Long term (current) use of oral hypoglycemic drugs; Z79.891 Long term (current) use of opiate analgesic; Z90.710 Acquired absence of both cervix and uterus; Z74.01 Bed confinement status
CPT/HCPCS: 36415; 36416; 51701; 71045; 71275; 74018; 74177; 74183; 80048; 80053; 80202; 81001; 83605; 83735; 83880; 84100; 84443; 84484; 85025; 85027; 85610; 85730; 86140; 87040; 87081; 87086; 87635; 93005; 93010; 94760; 96374; 96375; A9579; J0692; J0696; J1100; J1650; J1815; J1885; J3370; J3370-JW; J3475; J3490; J7050; Q9967; S0028

== ENCOUNTER 2024-04-09 12:30 | Observation (INO) | payer BC, MEDICAID, MEDICARE ==
[2024-04-09 13:24] LABS: #Basophils 0.04 10x3/uL (0.0-0.2); %Basophils 0.3 % (0.0-1.0); %Eosinophils 1.2 % (0.0-10.0); %Monocytes 7.3 % (0.0-10.0); %Neutrophils 70.6 % (42.0-75.0); Hematocrit 46.5 % (36.0-47.0); Mean Corpuscular HGB CONC 34.4 g/dL (32.0-36.0); Mean Corpuscular Hemoglobin 29.7 pg (27.0-31.0); Mean Corpuscular Volume 86.3 fL (78.0-98.0); Platelet Count 357 10x3/uL (130-400); RBC Distribution Width 13.2 % (11.5-14.5); Red Blood Cell (RBC) Count 5.39 mill/uL (4.20-5.40)
[2024-04-09] MEDS ORDERED: Sodium Chloride 0.9% 100 ML ONE (13:44)
[2024-04-09] MEDS ORDERED: Cefepime 2 GM VIAL ONE (13:53)
[2024-04-09] MEDS ORDERED: Iopamidol-370 76% 500 ML MDV (1 ML CHARGE) ONE (15:40)
[2024-04-09 15:56] LABS: Blood Culture - Extra Bottle RECEIVED; Blue RECEIVED; Gold RECEIVED; Green RECEIVED; Lavender RECEIVED; SST 8.5mL RECEIVED
[2024-04-09 16:10] LABS: ALT (SGPT) 22 U/L (8-55); AST (SGOT) 27 U/L (5-34); Alkaline Phosphatase 78 U/L (40-110); Anion Gap 15 mmol/L (10-20); BUN (Urea Nitrogen) 13 mg/dL (9.8-20.1); Bilirubin, Total 0.6 mg/dL (0.2-1.2); Calc. Creatinine Clearance 0 mL/min (70-130); Calcium 10.3 mg/dL (7.8-10.44); Carbon Dioxide 22 mmol/L (23-31); Chloride 106 mmol/L (98-107); Estimated GFR 86; Globulin 4.7 g/dL (2.4-3.5); Glucose 122 mg/dL (83-110); Protein, Total 7.7 g/dL (5.8-8.1); Sodium 139 mmol/L (136-145)
[2024-04-09] MEDS ORDERED: Ondansetron PF 4 MG/2 ML Vial ONE (18:09)
[2024-04-09] MEDS ORDERED: Morphine 4 MG/ML VIAL ONE (18:09)
[2024-04-09 19:32] LABS: Lactic Acid 1.3 mmol/L (0.5-2.2)
[2024-04-09 21:52] VITALS: BMI 37.3
[2024-04-09] MEDS: Vancomycin (BATCH) 2 GM in Premix 1 BAG IVPB SCH (22:09)
[2024-04-09] MEDS: Sodium Chloride 0.9% 1,000 ML IV SCH (22:43)
[2024-04-09] MEDS ORDERED: HumaLOG 300 UNITS/3 ML VIAL SC PRN (23:58)
[2024-04-09] MEDS ORDERED: Acetaminophen 500 MG TAB PO PRN (23:58)
[2024-04-09] MEDS ORDERED: Dextrose 50% Abboject 50 ML SYRINGE SLOW IVP PRN (23:59)
[2024-04-09] MEDS ORDERED: Glucagon 1 MG/ML KIT IM PRN (23:59)
[2024-04-09] MEDS ORDERED: Insulin Regular, Human 100 UNIT/ML 10 ML VIAL SC PRN (23:59)
[2024-04-09] MEDS ORDERED: Dextrose 5% in Water 1,000 ML IV PRN (23:59)
[2024-04-10] MEDS ORDERED: Ondansetron PF 4 MG/2 ML Vial IVP PRN (00:07)
[2024-04-10] MEDS ORDERED: Acetaminophen 650 MG Suppository PR PRN (00:07)
[2024-04-10] MEDS ORDERED: Acetaminophen 325 MG TAB PO PRN (00:07)
[2024-04-10] MEDS ORDERED: Ondansetron ODT 4 MG TAB PO PRN (00:07)
[2024-04-10 07:03] LABS: Anion Gap 12 mmol/L (10-20); BUN (Urea Nitrogen) 11 mg/dL (9.8-20.1); Calc. Creatinine Clearance 114 mL/min (70-130); Calcium 9.6 mg/dL (7.8-10.44); Carbon Dioxide 21 mmol/L (23-31); Chloride 106 mmol/L (98-107); Estimated GFR 88; Glucose 157 mg/dL (83-110); Potassium 3.8 mmol/L (3.5-5.1); Sodium 135 mmol/L (136-145)
[2024-04-10] MEDS ORDERED: Rocuronium Bromide 10 MG/ML (10ML VIAL) ONE (07:11)
[2024-04-10] MEDS ORDERED: fentaNYL PF 100 MCG/2 ML SYRINGE ONE (07:11)
[2024-04-10] MEDS ORDERED: PROPOFOL 20 ML ONE (07:11)
[2024-04-10] MEDS ORDERED: Lidocaine 1% PF 5 ML VIAL ONE (07:11)
[2024-04-10] MEDS ORDERED: EPINEPHrine 1 MG/ML VIAL ONE (07:13)
[2024-04-10] MEDS ORDERED: Bupivacaine PF 0.5% 30 ML VIAL ONE (07:13)
[2024-04-10] MEDS ORDERED: Lidocaine 2% PF 5 ML VIAL ONE (07:14)
[2024-04-10 07:29] LABS: #Basophils 0.04 10x3/uL (0.0-0.2); %Basophils 0.4 % (0.0-1.0); %Eosinophils 1.9 % (0.0-10.0); %Lymphocytes 15.4 % (21.0-51.0); %Monocytes 6.8 % (0.0-10.0); Hematocrit 42.1 % (36.0-47.0); Hemoglobin 14.1 g/dL (12.0-16.0); Mean Corpuscular HGB CONC 33.5 g/dL (32.0-36.0); Mean Corpuscular Volume 89.6 fL (78.0-98.0); Mean Platelet Volume 9.3 fL (7.4-10.4); Platelet Count 301 10x3/uL (130-400); RBC Distribution Width 13.1 % (11.5-14.5)
[2024-04-10] MEDS ORDERED: Dexamethasone 20 MG/5 ML VIAL ONE (08:00)
[2024-04-10] MEDS ORDERED: SUGAMMADEX SODIUM 200 MG/2 ML VIAL ONE (08:07)
[2024-04-10] MEDS ORDERED: traMADol HCl 50 MG TAB PO PRN (08:21)
[2024-04-10] MEDS ORDERED: Famotidine/PF 20 mg/2ml Vial SLOW IVP SCH (09:00)
[2024-04-10] MEDS ORDERED: Sertraline 25 MG TAB PO SCH (09:00)
[2024-04-10] MEDS ORDERED: Famotidine 20 MG TAB PO SCH (09:00)
[2024-04-10] MEDS ORDERED: Losartan 25 MG TAB PO SCH (09:00)
[2024-04-10] MEDS: Acetaminophen 500 MG TAB PO SCH (09:10)
[2024-04-10] MEDS: Allopurinol 100 MG TAB PO SCH (09:18)
[2024-04-10] MEDS: Multivit, Therapeutic 1 TAB PO SCH (09:18)
[2024-04-10] MEDS: Pantoprazole DR 40 MG TAB PO SCH (09:18)
[2024-04-10] MEDS: Cholecalciferol 1,000 UNITS (25 MCG) TAB PO SCH (09:18)
[2024-04-10] MEDS: Insulin Glargine 30 UNITS/0.3 ML VIAL SC SCH (10:54)
[2024-04-10] MEDS: Insulin Regular, Human 100 UNIT/ML 10 ML VIAL SC PRN (12:37)
[2024-04-10 14:36] VITALS: BMI 37.3
[2024-04-10 16:56] VITALS: BP 146/76; TEMP 98.3
== END 2024-04-10 18:43 ==
LOC: ERS 12:30 → T4-A 20:21
PROVIDERS: ADMIT Student in an Organized Health Care Education/Training Program; ATTEND Internal Medicine
PROC: 0H96XZZ Drainage of Back Skin, External Approach (ICD-10-PCS; principal; 2024-04-09)
DX: L02.212 Cutaneous abscess of back [any part, except buttock and flank] (principal); Z79.82 Long term (current) use of aspirin; Z79.899 Other long term (current) drug therapy; I10 Essential (primary) hypertension; K21.9 Gastro-esophageal reflux disease without esophagitis; E87.6 Hypokalemia; I89.0 Lymphedema, not elsewhere classified; G35 Multiple sclerosis; E11.9 Type 2 diabetes mellitus without complications; Z90.49 Acquired absence of other specified parts of digestive tract; Z98.51 Tubal ligation status; Z90.710 Acquired absence of both cervix and uterus
CPT/HCPCS: 10060; 71260; 80048; 80053; 82962; 83605; 85025 ×2; 87040; 87070; 87075; 87076; 87077; 87186; 87205; 96361; 96365; 96375; 99284; C1713; G0378 ×3; J0171; J0665; J0692; J1100; J1815; J2001; J2270; J2405; J2704; J3370; J3490; J7050; Q9967; 36415; 36416

== ENCOUNTER 2025-05-02 05:55 | Inpatient (IN) | payer MEDICARE, MEDICAID ==
[2025-05-02 07:12] LABS: #Basophils 0.06 10x3/uL (0.0-0.2); #Eosinophils 0.31 10x3/uL (0.0-0.7); #Monocytes 0.53 10x3/uL (0.11-0.59); #Neutrophils 8.28 10x3/uL (1.40-6.50); %Basophils 0.5 % (0.0-1.0); %Eosinophils 2.6 % (0.0-10.0); %Lymphocytes 21.6 % (21.0-51.0); %Monocytes 4.5 % (0.0-10.0); %Neutrophils 69.8 % (42.0-75.0); Hematocrit 36.1 % (36.0-47.0); Hemoglobin 11.4 g/dL (12.0-16.0); Mean Corpuscular Hemoglobin 27.3 pg (27.0-31.0); Mean Corpuscular Volume 86.4 fL (78.0-98.0); Platelet Count 484 10x3/uL (130-400); Red Blood Cell (RBC) Count 4.18 mill/uL (4.20-5.40); White Blood Cell (WBC) Count 11.86 10x3/uL (4.8-10.8)
[2025-05-02 07:26] LABS: INR-International Normal Ratio 1.2; Prothrombin Time 15.6 sec (12.0-14.7)
[2025-05-02 07:27] LABS: PTT 42.9 sec (22.9-36.1)
[2025-05-02 07:43] LABS: ALT (SGPT) 66 U/L (Less than 34); AST (SGOT) 108 U/L (11-34); Albumin 1.9 g/dL (3.1-4.5); Alkaline Phosphatase 112 U/L (40-110); Anion Gap 14 mmol/L (10-20); BUN (Urea Nitrogen) 8 mg/dL (9.8-20.1); Bilirubin, Total 0.4 mg/dL (0.3-1.2); Calc. Creatinine Clearance 0 mL/min (70-130); Calcium 9.6 mg/dL (7.8-10.44); Carbon Dioxide 22 mmol/L (23-31); Chloride 107 mmol/L (98-107); Globulin 6.0 g/dL (2.4-3.5); Glucose 123 mg/dL (83-110); Potassium 3.4 mmol/L (3.5-5.1); Sodium 140 mmol/L (136-145); Troponin I 0.020 ng/mL (< 0.028)
[2025-05-02 07:44] LABS: Bacteria/HPF None Seen HPF (None Seen); CAUTI Indications for Culture Alt mental st,lethar; Glucose, Urine (Dipstick) Normal (Negative); Leukocyte Negative Leu/uL (Negative); Protein, Urine (Dipstick) 30 mg/dL (Neg-Trace); RBC/HPF None Seen HPF (0-3); Specific Gravity, Urine 1.017 (1.002-1.036); WBC/HPF 0-3 HPF (0-3)
[2025-05-02] MEDS ORDERED: Cefepime 2 GM VIAL ONE (07:46)
[2025-05-02 07:47] LABS: Urine Culture Reflex No No
[2025-05-02 08:07] LABS: Magnesium 1.8 mg/dL (1.6-2.6)
[2025-05-02] MEDS ORDERED: Iopamidol-370 76% 500 ML MDV (1 ML CHARGE) ONE (11:47)
[2025-05-02] MEDS ORDERED: Dextrose 50% Abboject 50 ML SYRINGE SLOW IVP PRN (12:14)
[2025-05-02] MEDS ORDERED: Bisacodyl 10 MG SUPP PR PRN (12:14)
[2025-05-02] MEDS ORDERED: Glucagon 1 MG/ML KIT IM PRN (12:14)
[2025-05-02] MEDS: Vancomycin (BATCH) 2.5 GM in Premix 1 BAG IVPB SCH (15:29)
[2025-05-02] MEDS: NS 0.9% w/ 40 MEQ KCL 1,000 ML IV SCH (15:30)
[2025-05-02] MEDS: cefTRIAXone\\ROCEPHIN 2 GM in Sodium Chloride 0.9% 100 ML IVPB SCH (15:52)
[2025-05-02] MEDS: Acetaminophen 325 MG TAB PO PRN (20:38)
[2025-05-02] MEDS: Famotidine/PF 20 mg/2ml Vial SLOW IVP SCH (20:38)
[2025-05-03] MEDS: Magnesium 2 GM/50 ML(in water) 2 GM in Premix 1 BAG IVPB SCH (00:36)
[2025-05-03 01:08] LABS: #Basophils 0.07 10x3/uL (0.0-0.2); #Eosinophils 0.26 10x3/uL (0.0-0.7); #Monocytes 0.88 10x3/uL (0.11-0.59); #Neutrophils 6.17 10x3/uL (1.40-6.50); %Basophils 0.7 % (0.0-1.0); %Eosinophils 2.7 % (0.0-10.0); %Lymphocytes 23.8 % (21.0-51.0); %Monocytes 9.0 % (0.0-10.0); %Neutrophils 63.0 % (42.0-75.0); Hematocrit 38.9 % (36.0-47.0); Hemoglobin 12.2 g/dL (12.0-16.0); Mean Corpuscular Hemoglobin 27.7 pg (27.0-31.0); Mean Corpuscular Volume 88.4 fL (78.0-98.0); Platelet Count 412 10x3/uL (130-400); Red Blood Cell (RBC) Count 4.40 mill/uL (4.20-5.40); White Blood Cell (WBC) Count 9.79 10x3/uL (4.8-10.8)
[2025-05-03 01:22] LABS: ALT (SGPT) 51 U/L (Less than 34); AST (SGOT) 65 U/L (11-34); Albumin 1.9 g/dL (3.1-4.5); Alkaline Phosphatase 100 U/L (40-110); Anion Gap 16 mmol/L (10-20); BUN (Urea Nitrogen) 5 mg/dL (9.8-20.1); Bilirubin, Total 0.4 mg/dL (0.3-1.2); Calc. Creatinine Clearance 159 mL/min (70-130); Calcium 9.3 mg/dL (7.8-10.44); Carbon Dioxide 20 mmol/L (23-31); Chloride 111 mmol/L (98-107); Globulin 5.6 g/dL (2.4-3.5); Glucose 114 mg/dL (83-110); Magnesium 1.8 mg/dL (1.6-2.6); Potassium 3.7 mmol/L (3.5-5.1); Sodium 143 mmol/L (136-145)
[2025-05-03 02:08] LABS: Campy jejuni + coli by PCR Negative (Negative); STEC Shiga Toxin 1+2 Negative (Negative); Salmonella spp. by PCR Negative (Negative); Shigella spp + EIEC by PCR Negative (Negative)
[2025-05-03] MEDS: Metoprolol Tartrate 5 MG (5 mL) VIAL IVP SCH (02:49)
[2025-05-03] MEDS: Enoxaparin 40 MG (0.4 mL) SYRINGE SC SCH (09:30)
[2025-05-03] MEDS: Losartan 25 MG TAB PO SCH (09:31)
[2025-05-03] MEDS: Allopurinol 100 MG TAB PO SCH (09:31)
[2025-05-03] MEDS: Aspirin Chewable 81 MG TAB PO SCH (09:31)
[2025-05-03] MEDS: Glycerin Adult Supp. (12 ct jar) PR SCH (21:32)
[2025-05-04] MEDS: Albumin 25% 25 GM (100 mL) BOT IVPB SCH ×2 (00:08→20:00)
[2025-05-04 04:49] LABS: #Basophils 0.04 10x3/uL (0.0-0.2); #Eosinophils 0.21 10x3/uL (0.0-0.7); #Monocytes 1.82 10x3/uL (0.11-0.59); #Neutrophils 5.38 10x3/uL (1.40-6.50); %Basophils 0.3 % (0.0-1.0); %Eosinophils 1.8 % (0.0-10.0); %Lymphocytes 35.4 % (21.0-51.0); %Monocytes 15.6 % (0.0-10.0); %Neutrophils 46.1 % (42.0-75.0); Anion Gap 17 mmol/L (10-20); BUN (Urea Nitrogen) 6 mg/dL (9.8-20.1); Calc. Creatinine Clearance 148 mL/min (70-130); Calcium 9.6 mg/dL (7.8-10.44); Carbon Dioxide 19 mmol/L (23-31); Chloride 110 mmol/L (98-107); Glucose 108 mg/dL (83-110); Hematocrit 37.6 % (36.0-47.0); Hemoglobin 12.0 g/dL (12.0-16.0); Mean Corpuscular Hemoglobin 27.6 pg (27.0-31.0); Mean Corpuscular Volume 86.6 fL (78.0-98.0); Platelet Count 449 10x3/uL (130-400); Potassium 3.5 mmol/L (3.5-5.1); Red Blood Cell (RBC) Count 4.34 mill/uL (4.20-5.40); Sodium 142 mmol/L (136-145); White Blood Cell (WBC) Count 11.68 10x3/uL (4.8-10.8)
[2025-05-04] MEDS ORDERED: Iopamidol 370 76% 100 ML VIAL ONE (10:21)
[2025-05-04] MEDS: Glycerin Adult Supp. (12 ct jar) PR SCH (10:46)
[2025-05-04] MEDS: Glycerin Adult Supp. (12 ct jar) PR PRN (17:38)
[2025-05-04 19:12] LABS: #Basophils 0.09 10x3/uL (0.0-0.2); #Eosinophils 0.29 10x3/uL (0.0-0.7); #Monocytes 0.79 10x3/uL (0.11-0.59); #Neutrophils 7.84 10x3/uL (1.40-6.50); %Basophils 0.6 % (0.0-1.0); %Eosinophils 1.8 % (0.0-10.0); %Lymphocytes 41.9 % (21.0-51.0); %Monocytes 4.9 % (0.0-10.0); %Neutrophils 48.3 % (42.0-75.0); Hematocrit 37.5 % (36.0-47.0); Hemoglobin 11.8 g/dL (12.0-16.0); Mean Corpuscular Hemoglobin 27.9 pg (27.0-31.0); Mean Corpuscular Volume 88.7 fL (78.0-98.0); Platelet Count 484 10x3/uL (130-400); Red Blood Cell (RBC) Count 4.23 mill/uL (4.20-5.40); White Blood Cell (WBC) Count 16.19 10x3/uL (4.8-10.8)
[2025-05-04] MEDS ORDERED: Fentanyl BOLUS 100 ML IVPB PRN (19:15)
[2025-05-04] MEDS ORDERED: DISCONTINUE PREVIOUS NARCOTIC PAIN MEDICATIONS AND BENZODIAZEPINES FS SCH (19:15)
[2025-05-04] MEDS ORDERED: Propofol BOLUS 1,000 MG/100 ML VIAL IV PRN (19:15)
[2025-05-04 19:20] LABS: Actual Bicarbonate (HCO3a) 20.2 mEq/L (22-28); Base Excess (BEa) -3.1 mEq/L (-2.0 to +3.0); CO2 Tension 30.9 mmHg (35.0-45.0); Calcium, Ionized (arterial) 1.30 mmol/L (1.12-1.30); Hematocrit-ABG 35 % (36.0-47.0); Hemoglobin (Hb) 11.9 g/dL (12.0-16.0); O2 Tension (PaO2), arterial 331.0 mmHg (> 60.0); Potassium - ABG Lab 2.72 mmol/L (3.70-5.30); pH, Arterial 7.434 (7.35-7.45)
[2025-05-04 19:21] LABS: ALV-art Gradient 343.375 mmHg (0-20); Puncture Site Right Radial artery
[2025-05-04 19:27] LABS: ALT (SGPT) 87 U/L (Less than 34); AST (SGOT) 219 U/L (11-34); Albumin 2.7 g/dL (3.1-4.5); Alkaline Phosphatase 89 U/L (40-110); Anion Gap 19 mmol/L (10-20); BUN (Urea Nitrogen) 5 mg/dL (9.8-20.1); Bilirubin, Total 0.6 mg/dL (0.3-1.2); Calc. Creatinine Clearance 135 mL/min (70-130); Calcium 9.0 mg/dL (7.8-10.44); Carbon Dioxide 17 mmol/L (23-31); Chloride 107 mmol/L (98-107); Globulin 4.5 g/dL (2.4-3.5); Glucose 156 mg/dL (83-110); Magnesium 4.2 mg/dL (1.6-2.6); Potassium 3.1 mmol/L (3.5-5.1); Sodium 140 mmol/L (136-145)
[2025-05-04] MEDS: NOREPINEPHRINE 8 MG/250 ML-D5W 250 ML IVPB SCH (19:30)
[2025-05-04] MEDS: Sodium Bicarb 50 MEQ/50 ML Abboject 8.4% SYRINGE IVP SCH (19:50)
[2025-05-04] MEDS: cefTRIAXone\\ROCEPHIN 2 GM in Sodium Chloride 0.9% 100 ML IVPB SCH (19:50)
[2025-05-04] MEDS: Potassium Chloride 40 MEQ in Premix 1 BAG IVPB SCH (19:50)
[2025-05-04] MEDS: NOREPINEPHRINE 8 MG/250 ML-D5W 250 ML ONE (20:21)
[2025-05-05] MEDS: Albumin 25% 25 GM (100 mL) BOT IVPB SCH (01:10)
[2025-05-05] MEDS: Amiodarone 150 MG, Admixture Fee 1 EACH in Dextrose 5% in Water 100 ML IVPB SCH (01:41)
[2025-05-05 02:01] LABS: #Basophils 0.04 10x3/uL (0.0-0.2); #Eosinophils 0.10 10x3/uL (0.0-0.7); #Monocytes 0.59 10x3/uL (0.11-0.59); #Neutrophils 12.02 10x3/uL (1.40-6.50); %Basophils 0.3 % (0.0-1.0); %Eosinophils 0.6 % (0.0-10.0); %Lymphocytes 16.8 % (21.0-51.0); %Monocytes 3.8 % (0.0-10.0); %Neutrophils 77.2 % (42.0-75.0); Hematocrit 33.6 % (36.0-47.0); Hemoglobin 10.7 g/dL (12.0-16.0); Mean Corpuscular Hemoglobin 27.9 pg (27.0-31.0); Mean Corpuscular Volume 87.7 fL (78.0-98.0); Platelet Count 373 10x3/uL (130-400); Red Blood Cell (RBC) Count 3.83 mill/uL (4.20-5.40); White Blood Cell (WBC) Count 15.57 10x3/uL (4.8-10.8)
[2025-05-05 02:21] LABS: ALT (SGPT) 67 U/L (Less than 34); AST (SGOT) 150 U/L (11-34); Albumin 3.5 g/dL (3.1-4.5); Alkaline Phosphatase 76 U/L (40-110); Anion Gap 21 mmol/L (10-20); BUN (Urea Nitrogen) 5 mg/dL (9.8-20.1); Bilirubin, Total 0.7 mg/dL (0.3-1.2); Calc. Creatinine Clearance 148 mL/min (70-130); Calcium 9.2 mg/dL (7.8-10.44); Carbon Dioxide 19 mmol/L (23-31); Chloride 107 mmol/L (98-107); Globulin 3.9 g/dL (2.4-3.5); Glucose 154 mg/dL (83-110); Magnesium 3.4 mg/dL (1.6-2.6); Potassium 3.3 mmol/L (3.5-5.1); Sodium 144 mmol/L (136-145)
[2025-05-05 02:26] LABS: Troponin I 0.175 ng/mL (< 0.028)
[2025-05-05] MEDS: Sodium Bicarb 50 MEQ/50 ML Abboject 8.4% SYRINGE IVP SCH (03:08)
[2025-05-05] MEDS: Potassium Chloride 40 MEQ in Premix 1 BAG IVPB SCH ×2 (03:10→14:08)
[2025-05-05] MEDS ORDERED: Calcium Chloride 1 GM/10 ML Abboject SYRINGE ONE (04:42)
[2025-05-05] MEDS ORDERED: Sodium Bicarb 50 MEQ/50 ML Abboject 8.4% SYRINGE ONE (04:42)
[2025-05-05] MEDS ORDERED: EPINEPHrine 1 MG/10 ML Abboject SYRINGE ONE (04:42)
[2025-05-05 05:37] LABS: Troponin I 0.195 ng/mL (< 0.028)
[2025-05-05 07:06] LABS: Actual Bicarbonate (HCO3a) 24.1 mEq/L (22-28); Base Excess (BEa) 2.9 mEq/L (-2.0 to +3.0); CO2 Tension 26.4 mmHg (35.0-45.0); Calcium, Ionized (arterial) 1.29 mmol/L (1.12-1.30); Hematocrit-ABG 30 % (36.0-47.0); Hemoglobin (Hb) 10.3 g/dL (12.0-16.0); O2 Tension (PaO2), arterial 253.7 mmHg (> 60.0); Potassium - ABG Lab 3.39 mmol/L (3.70-5.30); pH, Arterial 7.579 (7.35-7.45)
[2025-05-05 07:08] LABS: ALV-art Gradient 426.300 mmHg (0-20); Puncture Site Right Radial artery
[2025-05-05] MEDS: ISOPROTERENOL IVPB SCH (08:57)
[2025-05-05] MEDS: DEXTROSE 5% IVPB SCH (08:57)
[2025-05-05] MEDS: WATER IVPB SCH (08:57)
[2025-05-05 10:39] LABS: Anion Gap 20 mmol/L (10-20); BUN (Urea Nitrogen) 4 mg/dL (9.8-20.1); Calc. Creatinine Clearance 136 mL/min (70-130); Calcium 9.5 mg/dL (7.8-10.44); Carbon Dioxide 23 mmol/L (23-31); Chloride 107 mmol/L (98-107); Glucose 162 mg/dL (83-110); Potassium 3.5 mmol/L (3.5-5.1); Sodium 146 mmol/L (136-145)
[2025-05-05] MEDS: VANCOMYCIN 2 GRAM/400 ML BAG 2 GM in Premix 1 BAG IVPB SCH (11:00)
[2025-05-05 17:42] LABS: Potassium 4.3 mmol/L (3.5-5.1)
[2025-05-05] MEDS: Vancomycin 1.25 GM / NS 250 ML VIAL-2-BAG IVPB SCH (22:53)
[2025-05-06 04:31] LABS: #Basophils 0.05 10x3/uL (0.0-0.2); #Eosinophils 0.39 10x3/uL (0.0-0.7); #Monocytes 0.72 10x3/uL (0.11-0.59); #Neutrophils 7.44 10x3/uL (1.40-6.50); %Basophils 0.5 % (0.0-1.0); %Eosinophils 3.8 % (0.0-10.0); %Lymphocytes 15.4 % (21.0-51.0); %Monocytes 7.1 % (0.0-10.0); %Neutrophils 72.8 % (42.0-75.0); Hematocrit 28.8 % (36.0-47.0); Hemoglobin 9.1 g/dL (12.0-16.0); Mean Corpuscular Hemoglobin 27.9 pg (27.0-31.0); Mean Corpuscular Volume 88.3 fL (78.0-98.0); Platelet Count 312 10x3/uL (130-400); Red Blood Cell (RBC) Count 3.26 mill/uL (4.20-5.40); White Blood Cell (WBC) Count 10.21 10x3/uL (4.8-10.8)
[2025-05-06 04:41] LABS: Vancomycin, Random 29.9 ug/mL (See Comment)
[2025-05-06 04:43] LABS: Anion Gap 15 mmol/L (10-20); BUN (Urea Nitrogen) 5 mg/dL (9.8-20.1); Calc. Creatinine Clearance 128 mL/min (70-130); Calcium 9.7 mg/dL (7.8-10.44); Carbon Dioxide 25 mmol/L (23-31); Chloride 110 mmol/L (98-107); Glucose 137 mg/dL (83-110); Magnesium 2.4 mg/dL (1.6-2.6); Potassium 3.5 mmol/L (3.5-5.1); Sodium 146 mmol/L (136-145)
[2025-05-06 05:06] VITALS: BMI 34.9
[2025-05-06] MEDS: Potassium Bicarbonate/Cit Ac 20 MEQ TAB PER TUBE SCH (07:34)
[2025-05-06] MEDS: Electrolyte Replacement Protocol 1 EACH FS ONE (07:34)
[2025-05-06] MEDS: Potassium Chloride 40 MEQ in Premix 1 BAG IVPB SCH (08:16)
[2025-05-06] MEDS ORDERED: Vancomycin HCl 750 MG in Sodium Chloride 0.9% 250 ML 250 ML IVPB SCH (11:00)
[2025-05-06] MEDS: DC Sedation Protocol FS ONE (12:57)
[2025-05-06 14:14] LABS: Potassium 4.1 mmol/L (3.5-5.1)
[2025-05-07 04:30] LABS: #Basophils 0.05 10x3/uL (0.0-0.2); #Eosinophils 0.61 10x3/uL (0.0-0.7); #Monocytes 0.63 10x3/uL (0.11-0.59); #Neutrophils 6.88 10x3/uL (1.40-6.50); %Basophils 0.5 % (0.0-1.0); %Eosinophils 6.2 % (0.0-10.0); %Lymphocytes 16.9 % (21.0-51.0); %Monocytes 6.4 % (0.0-10.0); %Neutrophils 69.5 % (42.0-75.0); Hematocrit 31.1 % (36.0-47.0); Hemoglobin 9.7 g/dL (12.0-16.0); Mean Corpuscular Hemoglobin 27.7 pg (27.0-31.0); Mean Corpuscular Volume 88.9 fL (78.0-98.0); Platelet Count 368 10x3/uL (130-400); Red Blood Cell (RBC) Count 3.50 mill/uL (4.20-5.40); White Blood Cell (WBC) Count 9.89 10x3/uL (4.8-10.8)
[2025-05-07 04:46] LABS: Anion Gap 14 mmol/L (10-20); BUN (Urea Nitrogen) 9 mg/dL (9.8-20.1); Calc. Creatinine Clearance 145 mL/min (70-130); Calcium 9.7 mg/dL (7.8-10.44); Carbon Dioxide 25 mmol/L (23-31); Chloride 113 mmol/L (98-107); Glucose 127 mg/dL (83-110); Potassium 3.6 mmol/L (3.5-5.1); Sodium 148 mmol/L (136-145)
[2025-05-07 09:31] LABS: Magnesium 2.0 mg/dL (1.6-2.6)
[2025-05-07] MEDS: Potassium Chloride 20 MEQ in Premix 1 BAG IVPB SCH (11:03)
[2025-05-07] MEDS: Magnesium 2 GM/50 ML(in water) 2 GM in Premix 1 BAG IVPB SCH (11:03)
[2025-05-08 05:12] LABS: #Basophils 0.05 10x3/uL (0.0-0.2); #Eosinophils 0.36 10x3/uL (0.0-0.7); #Monocytes 0.58 10x3/uL (0.11-0.59); #Neutrophils 5.12 10x3/uL (1.40-6.50); %Basophils 0.6 % (0.0-1.0); %Eosinophils 4.5 % (0.0-10.0); %Lymphocytes 22.9 % (21.0-51.0); %Monocytes 7.3 % (0.0-10.0); %Neutrophils 64.3 % (42.0-75.0); Hematocrit 30.9 % (36.0-47.0); Hemoglobin 9.7 g/dL (12.0-16.0); Mean Corpuscular Hemoglobin 27.3 pg (27.0-31.0); Mean Corpuscular Volume 87.0 fL (78.0-98.0); Platelet Count 357 10x3/uL (130-400); Red Blood Cell (RBC) Count 3.55 mill/uL (4.20-5.40); White Blood Cell (WBC) Count 7.96 10x3/uL (4.8-10.8)
[2025-05-08 05:35] LABS: Anion Gap 13 mmol/L (10-20); BUN (Urea Nitrogen) 9 mg/dL (9.8-20.1); Calc. Creatinine Clearance 162 mL/min (70-130); Calcium 9.2 mg/dL (7.8-10.44); Carbon Dioxide 25 mmol/L (23-31); Chloride 108 mmol/L (98-107); Glucose 140 mg/dL (83-110); Magnesium 2.0 mg/dL (1.6-2.6); Potassium 3.4 mmol/L (3.5-5.1); Sodium 143 mmol/L (136-145)
[2025-05-08] MEDS: Losartan 25 MG TAB PO SCH (08:39)
[2025-05-08] MEDS: Magnesium 2 GM/50 ML(in water) 2 GM in Premix 1 BAG IVPB SCH (08:40)
[2025-05-09 04:31] LABS: #Basophils 0.06 10x3/uL (0.0-0.2); #Eosinophils 0.35 10x3/uL (0.0-0.7); #Monocytes 0.63 10x3/uL (0.11-0.59); #Neutrophils 4.34 10x3/uL (1.40-6.50); %Basophils 0.8 % (0.0-1.0); %Eosinophils 4.5 % (0.0-10.0); %Lymphocytes 29.7 % (21.0-51.0); %Monocytes 8.2 % (0.0-10.0); %Neutrophils 56.3 % (42.0-75.0); Hematocrit 29.9 % (36.0-47.0); Hemoglobin 9.5 g/dL (12.0-16.0); Mean Corpuscular Hemoglobin 27.7 pg (27.0-31.0); Mean Corpuscular Volume 87.2 fL (78.0-98.0); Platelet Count 347 10x3/uL (130-400); Red Blood Cell (RBC) Count 3.43 mill/uL (4.20-5.40); White Blood Cell (WBC) Count 7.71 10x3/uL (4.8-10.8)
[2025-05-09 04:48] LABS: Anion Gap 12 mmol/L (10-20); BUN (Urea Nitrogen) 9 mg/dL (9.8-20.1); Calc. Creatinine Clearance 139 mL/min (70-130); Calcium 8.8 mg/dL (7.8-10.44); Carbon Dioxide 24 mmol/L (23-31); Chloride 111 mmol/L (98-107); Glucose 120 mg/dL (83-110); Potassium 3.8 mmol/L (3.5-5.1); Sodium 143 mmol/L (136-145)
[2025-05-10 05:34] LABS: #Basophils 0.06 10x3/uL (0.0-0.2); #Eosinophils 0.42 10x3/uL (0.0-0.7); #Monocytes 0.55 10x3/uL (0.11-0.59); #Neutrophils 3.28 10x3/uL (1.40-6.50); %Basophils 0.9 % (0.0-1.0); %Eosinophils 6.0 % (0.0-10.0); %Lymphocytes 37.9 % (21.0-51.0); %Monocytes 7.8 % (0.0-10.0); %Neutrophils 46.7 % (42.0-75.0); Hematocrit 32.3 % (36.0-47.0); Hemoglobin 10.0 g/dL (12.0-16.0); Mean Corpuscular Hemoglobin 27.0 pg (27.0-31.0); Mean Corpuscular Volume 87.1 fL (78.0-98.0); Platelet Count 317 10x3/uL (130-400); Red Blood Cell (RBC) Count 3.71 mill/uL (4.20-5.40); White Blood Cell (WBC) Count 7.02 10x3/uL (4.8-10.8)
[2025-05-10 05:56] LABS: Anion Gap 12 mmol/L (10-20); BUN (Urea Nitrogen) 11 mg/dL (9.8-20.1); Calc. Creatinine Clearance 156 mL/min (70-130); Calcium 9.1 mg/dL (7.8-10.44); Carbon Dioxide 23 mmol/L (23-31); Chloride 110 mmol/L (98-107); Glucose 121 mg/dL (83-110); Potassium 3.8 mmol/L (3.5-5.1); Sodium 141 mmol/L (136-145)
[2025-05-10] MEDS: Metoprolol Succinate XL 25 MG ER.TAB PO SCH (08:45)
[2025-05-11 04:53] LABS: #Basophils 0.07 10x3/uL (0.0-0.2); #Eosinophils 0.34 10x3/uL (0.0-0.7); #Monocytes 0.51 10x3/uL (0.11-0.59); #Neutrophils 3.46 10x3/uL (1.40-6.50); %Basophils 1.0 % (0.0-1.0); %Eosinophils 5.0 % (0.0-10.0); %Lymphocytes 35.3 % (21.0-51.0); %Monocytes 7.4 % (0.0-10.0); %Neutrophils 50.4 % (42.0-75.0); Hematocrit 38.1 % (36.0-47.0); Hemoglobin 12.0 g/dL (12.0-16.0); Mean Corpuscular Hemoglobin 27.5 pg (27.0-31.0); Mean Corpuscular Volume 87.4 fL (78.0-98.0); Platelet Count 348 10x3/uL (130-400); Red Blood Cell (RBC) Count 4.36 mill/uL (4.20-5.40); White Blood Cell (WBC) Count 6.86 10x3/uL (4.8-10.8)
[2025-05-11 05:04] LABS: Anion Gap 14 mmol/L (10-20); BUN (Urea Nitrogen) 6 mg/dL (9.8-20.1); Calc. Creatinine Clearance 160 mL/min (70-130); Calcium 9.7 mg/dL (7.8-10.44); Carbon Dioxide 23 mmol/L (23-31); Chloride 106 mmol/L (98-107); Glucose 125 mg/dL (83-110); Potassium 3.6 mmol/L (3.5-5.1); Sodium 139 mmol/L (136-145)
[2025-05-11 20:28] LABS: #Basophils 0.06 10x3/uL (0.0-0.2); #Eosinophils 0.24 10x3/uL (0.0-0.7); #Monocytes 0.60 10x3/uL (0.11-0.59); #Neutrophils 3.99 10x3/uL (1.40-6.50); %Basophils 0.8 % (0.0-1.0); %Eosinophils 3.3 % (0.0-10.0); %Lymphocytes 31.6 % (21.0-51.0); %Monocytes 8.3 % (0.0-10.0); %Neutrophils 55.2 % (42.0-75.0); Hematocrit 35.9 % (36.0-47.0); Hemoglobin 11.4 g/dL (12.0-16.0); Mean Corpuscular Hemoglobin 27.3 pg (27.0-31.0); Mean Corpuscular Volume 86.1 fL (78.0-98.0); Platelet Count 367 10x3/uL (130-400); Red Blood Cell (RBC) Count 4.17 mill/uL (4.20-5.40); White Blood Cell (WBC) Count 7.24 10x3/uL (4.8-10.8)
[2025-05-11 20:40] LABS: Actual Bicarbonate (HCO3v) 24.7 mEq/L (22-28); Base Excess 0.8 mEq/L (-2.0 to +3.0); Calcium, Ionized (venous) 1.25 mmol/L (1.16-1.32); Chloride (VBG) 105 mmol/L (98-106); Hematocrit-VBG 38 % (36.0-47.0); Hemoglobin (Hb) 13.0 g/dL (11.7-16.1); Potassium (VBG) 3.73 mmol/L (3.70-5.30); Sodium 141 mmol/L (133-146)
[2025-05-11 20:46] LABS: ALT (SGPT) 21 U/L (Less than 34); AST (SGOT) 49 U/L (11-34); Albumin 2.8 g/dL (3.1-4.5); Alkaline Phosphatase 79 U/L (40-110); Anion Gap 15 mmol/L (10-20); BUN (Urea Nitrogen) 8 mg/dL (9.8-20.1); Bilirubin, Total 0.7 mg/dL (0.3-1.2); Calc. Creatinine Clearance 144 mL/min (70-130); Calcium 9.8 mg/dL (7.8-10.44); Carbon Dioxide 22 mmol/L (23-31); Chloride 106 mmol/L (98-107); Globulin 5.2 g/dL (2.4-3.5); Glucose 138 mg/dL (83-110); Potassium 3.7 mmol/L (3.5-5.1); Sodium 139 mmol/L (136-145)
[2025-05-12 07:10] LABS: #Basophils 0.06 10x3/uL (0.0-0.2); #Eosinophils 0.19 10x3/uL (0.0-0.7); #Monocytes 1.19 10x3/uL (0.11-0.59); #Neutrophils 2.99 10x3/uL (1.40-6.50); %Basophils 0.8 % (0.0-1.0); %Eosinophils 2.6 % (0.0-10.0); %Lymphocytes 38.0 % (21.0-51.0); %Monocytes 16.5 % (0.0-10.0); %Neutrophils 41.4 % (42.0-75.0); Hematocrit 41.2 % (36.0-47.0); Hemoglobin 12.5 g/dL (12.0-16.0); Mean Corpuscular Hemoglobin 27.2 pg (27.0-31.0); Mean Corpuscular Volume 89.8 fL (78.0-98.0); Platelet Count 259 10x3/uL (130-400); Red Blood Cell (RBC) Count 4.59 mill/uL (4.20-5.40); White Blood Cell (WBC) Count 7.22 10x3/uL (4.8-10.8)
[2025-05-12 08:03] LABS: Anion Gap 14 mmol/L (10-20); BUN (Urea Nitrogen) 7 mg/dL (9.8-20.1); Calc. Creatinine Clearance 136 mL/min (70-130); Carbon Dioxide 21 mmol/L (23-31)
[2025-05-12 08:05] LABS: Calcium 9.5 mg/dL (7.8-10.44); Chloride 108 mmol/L (98-107); Glucose 98 mg/dL (83-110); Potassium 4.3 mmol/L (3.5-5.1); Sodium 139 mmol/L (136-145)
[2025-05-12] MEDS: Metoprolol Tartrate 5 MG (5 mL) VIAL IVP SCH (08:51)
[2025-05-12 11:55] LABS: Bacteria/HPF 1+ HPF (None Seen); Glucose, Urine (Dipstick) Normal (Negative); Leukocyte 250 Leu/uL (Negative); Protein, Urine (Dipstick) Negative (Neg-Trace); RBC/HPF 21-50 HPF (0-3); Specific Gravity, Urine 1.009 (1.002-1.036); WBC/HPF 21-50 HPF (0-3)
[2025-05-13 05:10] LABS: Anion Gap 16 mmol/L (10-20); BUN (Urea Nitrogen) 7 mg/dL (9.8-20.1); Calc. Creatinine Clearance 174 mL/min (70-130); Calcium 9.2 mg/dL (7.8-10.44); Carbon Dioxide 21 mmol/L (23-31); Chloride 105 mmol/L (98-107); Glucose 85 mg/dL (83-110); Potassium 4.1 mmol/L (3.5-5.1); Sodium 138 mmol/L (136-145)
[2025-05-13] MEDS: Metoprolol Succinate XL 50 MG ER.TAB PO SCH (09:44)
[2025-05-13 11:49] LABS: #Basophils 0.07 10x3/uL (0.0-0.2); #Eosinophils 0.24 10x3/uL (0.0-0.7); #Monocytes 0.88 10x3/uL (0.11-0.59); #Neutrophils 3.33 10x3/uL (1.40-6.50); %Basophils 1.0 % (0.0-1.0); %Eosinophils 3.6 % (0.0-10.0); %Lymphocytes 31.8 % (21.0-51.0); %Monocytes 13.2 % (0.0-10.0); %Neutrophils 49.8 % (42.0-75.0); Hematocrit 38.9 % (36.0-47.0); Hemoglobin 12.1 g/dL (12.0-16.0); Mean Corpuscular Hemoglobin 27.8 pg (27.0-31.0); Mean Corpuscular Volume 89.4 fL (78.0-98.0); Platelet Count 302 10x3/uL (130-400); Red Blood Cell (RBC) Count 4.35 mill/uL (4.20-5.40); White Blood Cell (WBC) Count 6.69 10x3/uL (4.8-10.8)
[2025-05-13] MEDS ORDERED: Sodium Bicarbonate 2.5 MEQ/5 ML SDV ONE (13:20)
[2025-05-13] MEDS ORDERED: Lidocaine 1% PF 5 ML VIAL ONE (13:20)
[2025-05-14] MEDS: Metoprolol Succinate XL 100 MG ER.TAB PO SCH (11:04)
[2025-05-14 12:25] VITALS: BMI 37.5
[2025-05-17 05:15] LABS: #Neutrophils 2.00 10x3/uL (1.40-6.50); %Basophils 0.9 % (0.0-1.0); %Eosinophils 4.6 % (0.0-10.0); %Lymphocytes 47.0 % (21.0-51.0); %Monocytes 12.0 % (0.0-10.0); %Neutrophils 35.1 % (42.0-75.0); Hematocrit 37.3 % (36.0-47.0); Hemoglobin 11.7 g/dL (12.0-16.0); Mean Corpuscular Hemoglobin 27.1 pg (27.0-31.0); Mean Corpuscular Volume 86.3 fL (78.0-98.0); Platelet Count 287 10x3/uL (130-400); Red Blood Cell (RBC) Count 4.32 mill/uL (4.20-5.40); White Blood Cell (WBC) Count 5.68 10x3/uL (4.8-10.8)
[2025-05-17 05:16] LABS: #Basophils 0.05 10x3/uL (0.0-0.2); #Eosinophils 0.26 10x3/uL (0.0-0.7); #Monocytes 0.68 10x3/uL (0.11-0.59)
[2025-05-17 05:39] LABS: ALT (SGPT) 8 U/L (Less than 34); AST (SGOT) 34 U/L (11-34); Albumin 2.7 g/dL (3.1-4.5); Alkaline Phosphatase 80 U/L (40-110); Anion Gap 12 mmol/L (10-20); BUN (Urea Nitrogen) 5 mg/dL (9.8-20.1); Bilirubin, Total 0.5 mg/dL (0.3-1.2); Calc. Creatinine Clearance 175 mL/min (70-130); Calcium 9.5 mg/dL (7.8-10.44); Carbon Dioxide 26 mmol/L (23-31); Chloride 107 mmol/L (98-107); Globulin 4.5 g/dL (2.4-3.5); Glucose 117 mg/dL (83-110); Magnesium 1.7 mg/dL (1.6-2.6); Potassium 3.3 mmol/L (3.5-5.1); Sodium 142 mmol/L (136-145)
[2025-05-17] MEDS: Magnesium 2 GM/50 ML(in water) 2 GM in Premix 1 BAG IVPB SCH (08:24)
[2025-05-17] MEDS: Potassium Chloride 40 MEQ in Premix 1 BAG IVPB SCH (10:03)
[2025-05-18 04:43] LABS: #Basophils 0.06 10x3/uL (0.0-0.2); #Eosinophils 0.22 10x3/uL (0.0-0.7); #Monocytes 0.83 10x3/uL (0.11-0.59); #Neutrophils 3.92 10x3/uL (1.40-6.50); %Basophils 0.8 % (0.0-1.0); %Eosinophils 2.9 % (0.0-10.0); %Lymphocytes 33.9 % (21.0-51.0); %Monocytes 10.9 % (0.0-10.0); %Neutrophils 51.2 % (42.0-75.0); Hematocrit 39.0 % (36.0-47.0); Hemoglobin 12.2 g/dL (12.0-16.0); Mean Corpuscular Hemoglobin 27.2 pg (27.0-31.0); Mean Corpuscular Volume 87.1 fL (78.0-98.0); Platelet Count 314 10x3/uL (130-400); Red Blood Cell (RBC) Count 4.48 mill/uL (4.20-5.40); White Blood Cell (WBC) Count 7.64 10x3/uL (4.8-10.8)
[2025-05-18 05:11] LABS: Anion Gap 14 mmol/L (10-20); BUN (Urea Nitrogen) 5 mg/dL (9.8-20.1); Calc. Creatinine Clearance 170 mL/min (70-130); Calcium 9.4 mg/dL (7.8-10.44); Carbon Dioxide 23 mmol/L (23-31); Chloride 108 mmol/L (98-107); Glucose 119 mg/dL (83-110); Magnesium 1.9 mg/dL (1.6-2.6); Potassium 3.3 mmol/L (3.5-5.1); Sodium 142 mmol/L (136-145)
[2025-05-18] MEDS: Magnesium 2 GM/50 ML(in water) 2 GM in Premix 1 BAG IVPB SCH (10:50)
[2025-05-18 12:18] VITALS: TEMP 98.3
[2025-05-18 17:23] VITALS: BP 129/60
== END 2025-05-18 20:10 | disposition home or self-care (01) | DRG 871 ==
LOC: ERS 05:55 → 2SE 11:32 → CCU 05-04 18:54 → 2NO 05-07 17:43
PROVIDERS: ADMIT Internal Medicine; ATTEND Internal Medicine
PROC: 4A133R1 Monitoring of Arterial Saturation, Peripheral, Percutaneous Approach (ICD-10-PCS; principal; 2025-05-04)
PROC: 3E03329 Introduction of Other Anti-infective into Peripheral Vein, Percutaneous Approach (ICD-10-PCS; 2025-05-04)
PROC: 3E033XZ Introduction of Vasopressor into Peripheral Vein, Percutaneous Approach (ICD-10-PCS; 2025-05-04)
PROC: 30233J1 Transfusion of Nonautologous Serum Albumin into Peripheral Vein, Percutaneous Approach (ICD-10-PCS; 2025-05-04)
PROC: 5A1945Z Respiratory Ventilation, 24-96 Consecutive Hours (ICD-10-PCS; 2025-05-04)
PROC: 0BH17EZ Insertion of Endotracheal Airway into Trachea, Via Natural or Artificial Opening (ICD-10-PCS; 2025-05-04)
PROC: 02HV33Z Insertion of Infusion Device into Superior Vena Cava, Percutaneous Approach (ICD-10-PCS; 2025-05-13)
PROC: B5181ZA Fluoroscopy of Superior Vena Cava using Low Osmolar Contrast, Guidance (ICD-10-PCS; 2025-05-13)
PROC: 3E04329 Introduction of Other Anti-infective into Central Vein, Percutaneous Approach (ICD-10-PCS; 2025-05-13)
DX: A41.9 Sepsis, unspecified organism (principal); G93.41 Metabolic encephalopathy; L89.154 Pressure ulcer of sacral region, stage 4; R57.0 Cardiogenic shock; K86.2 Cyst of pancreas; M46.28 Osteomyelitis of vertebra, sacral and sacrococcygeal region; I82.612 Acute embolism and thrombosis of superficial veins of left upper extremity; I47.10 Supraventricular tachycardia, unspecified; I47.21 Torsades de pointes; E11.69 Type 2 diabetes mellitus with other specified complication; I10 Essential (primary) hypertension; M10.9 Gout, unspecified; F03.C0 Unspecified dementia, severe, without behavioral disturbance, psychotic disturbance, mood disturbance, and anxiety; R53.81 Other malaise; K86.89 Other specified diseases of pancreas; R19.7 Diarrhea, unspecified; E87.6 Hypokalemia; K76.89 Other specified diseases of liver; T36.8X5A Adverse effect of other systemic antibiotics, initial encounter; E83.42 Hypomagnesemia; G35 Multiple sclerosis; K59.00 Constipation, unspecified; I48.0 Paroxysmal atrial fibrillation; Z86.73 Personal history of transient ischemic attack (TIA), and cerebral infarction without residual deficits; Z90.710 Acquired absence of both cervix and uterus; Z90.49 Acquired absence of other specified parts of digestive tract; Z98.890 Other specified postprocedural states; Z74.01 Bed confinement status
CPT/HCPCS: 36415; 36416; 36584; 36600; 70450; 71045; 71250; 71275; 74177; 74183; 80048; 80053; 80202; 81001; 81003; 81015; 82105; 82140; 82378; 82805; 83036; 83605; 83735; 84100; 84443; 84484; 85025; 85610; 85730; 86141; 86301; 87040; 87077; 87086; 87149; 87324; 87449; 87505; 93005; 93010; 93306; 93970; 94002; 94003; 94760; 96374; 96375; 97139; C1751; J0165; J0282; J0692; J0696; J0878; J1308; J1650; J1815; J2185; J2272; J2704; J3373; J3375; J3475; J3480; J7030; J7050; J7070; P9047; Q9967